=== PATIENT | male | born 1970 | race Caucasian/White ===

== ENCOUNTER 2021-12-03 16:58 | Outpatient (CLI) | payer OTHER ==
--- NOTE | 2021-12-03 20:51 | XRAY Report ---
PROCEDURE: Chest 2 View X-Ray INDICATIONS: NIGHT SWEATS, ACOUSTIC NEUROMA TECHNIQUE: 2 view(s) of the chest. COMPARISON: None. FINDINGS: Surgical changes and devices: None. Lungs and pleura: No pleural effusions or pneumothorax. Lungs are clear. Mediastinum: Mediastinal contours are normal. Heart size is normal. Bones and chest wall: No suspicious bony abnormalities. Soft tissues appear unremarkable. IMPRESSION: No acute cardiopulmonary process demonstrated radiographically. Reviewed by: Pascual Rosa MD on 12/03/2021 8:49 PM PDT Approved by: Pascual Rosa MD on 12/03/2021 8:49 PM PDT Station ID: [id number]
== END 2021-12-03 16:59 | disposition home or self-care (01) ==
LOC: DI 16:58
PROVIDERS: ATTEND Nurse Practitioner Family
DX: R61 Generalized hyperhidrosis (principal)

== ENCOUNTER 2022-12-03 09:29 | Outpatient (CLI) | payer OTHER ==
--- NOTE | 2022-12-03 12:39 | XRAY Report ---
PROCEDURE: Hip w/Pelvis 1V LT INDICATIONS: NIGHT SWEATS, NEUROMA TECHNIQUE: AP pelvis with lateral view(s) of the left hip(s). COMPARISON: None. FINDINGS: Bones: No fractures or dislocations. No suspicious bony lesions. Mild bilateral hip joint space n arrowing Soft tissues: No suspicious soft tissue calcifications or masses. IMPRESSION: Mild bilateral hip joint space narrowing Reviewed by: Franko Ferguson MD on 12/03/2022 11:38 AM BRITTNEY Approved by: Franko Ferguson MD on 12/03/2022 11:38 AM AKDT Station ID: [id number]
== END 2022-12-03 09:30 | disposition home or self-care (01) ==
LOC: DI 09:29
PROVIDERS: ATTEND Nurse Practitioner Family
DX: M16.0 Bilateral primary osteoarthritis of hip (principal)

== ENCOUNTER 2022-12-27 12:35 | Emergency (ER) | payer MEDICAID, OTHER ==
[2022-12-27] MEDS ORDERED: BUTALB/ACETAM/CAFF 50/325/40MG TABLET PO STA (15:23)
--- NOTE | 2022-12-27 15:26 | ED Physician Documentation ---
PD HPI HEADACHE - Stated complaint Stated Complaint: EAR PX, MIGRAINE - Chief complaint Chief Complaint: Heent - History obtained from History obtained from: Patient, Family - History of Present Illness Pain level max: 6 Pain level now: 5 Location: Front Quality: Throbbing, Aching Associated symptoms: No: Fever, Nausea, Vomiting, Weakness, Numbness, Syncope, Seizure Contributing factors: No: Anticoagulated, Possible carbon monoxide, Hypertension, Trauma - Additional information Additional information: Patient is a 52-year-old male who presents to the emergency department with a headache for the past 4 days. Located in the front of the scalp. Nothing seems to make it better or worse.Worse with light and sound. Nothing seems to make it better. Took Tylenol without relief. He has also had clear drainage from his nose for the past 1 year. He has a history of an acoustic neuroma removal in 2019 in [place] he has not had any follow-up since that time. They moved here a couple of years ago. He was supposed to have an MRI with and 2 to 3 years of removal, but reportedly the insurance has recently denied to the MRI request. Patient denies any fevers or chills. 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 He was seen at the walk-in clinic today and they sent him here for a head CT. Review of Systems Constitutional: denies: Fever, Chills GI: denies: Nausea, Vomiting, Diarrhea Skin: denies: Rash Musculoskeletal: denies: Neck pain, Back pain Neurologic: denies: Headache PD PAST MEDICAL HISTORY - Past Medical History Past Medical History: No - Past Surgical History Past Surgical History: Yes Other past surgical history: Acoustic neuroma removal - Present Medications Home Medications: Ambulatory Orders Medication Instructions Recorded Confirmed Amox/Clav 875/125 [Augmentin] 1 tab PO Q12H #20 tablet 12/27/22 Cetirizine HCl/Pseudoephedrine 1 each PO BID PRN #30 tab 12/27/22 [Zyrtec-D Tablet] - Allergies Allergies/Adverse Reactions: Allergies Allergy/AdvReac Type Severity Reaction Status Date / Time No Known Drug Allergies Allergy Verified 12/27/22 12:54 - Living Situation Living Situation: reports: With family Living Arrangement: reports: At home - Social History Does the pt smoke?: No Does the pt have substance abuse?: No - Family History Family history: reports: Non contributory PD ED PE NORMAL - Vitals Vital signs reviewed: Yes - General General: Alert and oriented X 3, No acute distress - HEENT HEENT: PERRL, Moist mucous membranes, Pharynx benign, Other (R TM normal. L TM erythematous no fluid. Tender to palpation over the frontal sinuses. Mild intranasal inflammation) - Neck Neck: Supple, no meningeal sign - Cardiac Cardiac: RRR, Strong equal pulses - Respiratory Respiratory: No respiratory distress, Clear bilaterally - Abdomen Abdomen: Soft, Non tender, Non distended - Back Back: No spinal TTP - Derm Derm: Warm and dry - Extremities Extremities: Normal ROM s pain - Neuro Neuro: Alert and oriented X 3, head of marketing adometry 2-12 intact, No motor deficit, No sensory deficit, Normal speech Eye Opening: Spontaneous Motor: Obeys Commands Verbal: Oriented GCS Score: 15 - Psych Psych: Normal mood, Normal affect Results - Vitals Vitals: Vital Signs - 24 hr 12/27/22 12/27/22 12:51 16:20 Temperature 36.1 C L Heart Rate 80 81 Respiratory 16 16 Rate Blood Pressure 114/74 116/78 O2 Saturation 100 97 Oxygen O2 Source Room air - Rads (name of study) CT head Relevant Findings:: Final report received, See rad report PD Medical Decision Making - ED course Complexity details: reviewed results, re-evaluated patient, considered differential, d/w patient, d/w family ED course: 52-year-old male with a history of a left-sided acoustic neuroma that was reportedly removed in 2019. His headache improved with Fioricet, CT scan shows a possible right-sided acoustic neuroma. He will need an MRI with and without contrast for further characterization. This can be done with his doctor as an outpatient. Appears to have sinusitis as well. We will place on antibiotics and decongestants. We will have him follow-up with his doctor for further care. No evidence of subarachnoid hemorrhage. Patient counseled regarding signs and symptoms for which I believe and urgent re-evaluation would be necessary. Patient with good understanding of and agreement to plan and is comfortable goi home at this time This document was made in part using voice recognition software. While efforts are made to proofread this document, sound alike and grammatical errors may occur. Departure - Departure Disposition: 01 Home, Self Care Clinical Impression: Intracranial mass Sinusitis Qualifiers: Sinusitis location: pansinusitis Chronicity: acute Recurrence: non-recurrent Qualified Code(s): J01.40 - Acute pansinusitis, unspecified Condition: Good Instructions: ED Sinusitis Abx Tx Follow-Up: Julianne Donis ARNP [Primary Care Provider] - Within 1 week Prescriptions: Amox/Clav 875/125 [Augmentin] 1 tab PO Q12H #20 tablet Cetirizine HCl/Pseudoephedrine [Zyrtec-D Tablet] 1 each PO BID PRN #30 tab PRN Reason: nasal congestion Comments: Your prescriptions were sent to [facility] in [place]. Please take all antibiotics until gone. Please follow-up with your doctor for further care. Your head CT reading as below. On the right side at the cerebellar pontine angle, there is a lesion approximately 1.9 x 1 cm. Unclear if this has been present on your prior scans or not since they are not available. A brain MRI with and without contrast is recommended. Please follow-up with your doctor for this. You also appear to have sinusitis, we will place you on antibiotics for this. Please return if you worsen. EXAM: [id number] CT/HEADWO ([id number]) PROCEDURE: HEAD WO INDICATIONS: headache, h/o acoustic neuroma TECHNIQUE: Noncontrast 4.5 mm thick angled axial sections acquired from the foramen magnum to the vertex. For radiation dose reduction, the following was used: automated exposure control, adjustment of mA and/or kV according to patient size. COMPARISON: None. FINDINGS: Image quality: Excellent. CSF spaces: Basal cisterns are patent. No extra-axial fluid collections. Ventricles are normal in size and shape. Brain: A mildly hyperdense elliptical or cylindrical right CPA lesion measuring approximately 1.9 x 1.0 cm likely represents the patient's acoustic neuroma. No midline shift. No intracranial masses or hemorrhage. Cooper-white matter interface is normal. Skull and face: Calvarium and visualized facial bones are intact, without suspicious lesions. Sinuses: Patchy right ethmoid disease anteriorly. IMPRESSION: 1. No acute intracranial process. 2. Probable identification of the patient's acoustic neuroma. 3. Patchy right ethmoid sinusitis. Comment: If this patient has significant neurological symptoms, consider brain MRI with and without contrast. Discharge Date/Time: 12/27/22 17:06
--- NOTE | 2022-12-27 15:46 | CT Report ---
PROCEDURE: HEAD WO INDICATIONS: headache, h/o acoustic neuroma TECHNIQUE: Noncontrast 4.5 mm thick angled axial sections acquired from the foramen magnum to the vertex. For r adiation dose reduction, the following was used: automated exposure control, adjustment of mA and/or kV according to patient size. COMPARISON: None. FINDINGS: Image quality: Excellent. CSF spaces: Basal cisterns are patent. No extra-axial fluid collections. Ventricles are normal in size and shape. Brain: A mildly hyperdense elliptical or cylindrical right CPA lesion measuring approximately 1.9 x 1.0 cm likely represents the patient's acoustic neuroma. No midline shift. No intracranial masses or hemorrhage. Cooper-white matter interface is normal. Skull and face: Calvarium and visualized facial bones are intact, without suspicious lesions. Sinuses: Patchy right ethmoid disease anteriorly. IMPRESSION: 1. No acute intracranial process. 2. Probable identification of the patient's acoustic neuroma. 3. Patchy right ethmoid sinusitis. Comment: If this patient has significant neurological symptoms, consider brain MRI with and without c ontrast. Reviewed by: Eric Kirby MD on 12/27/2022 3:45 PM PDT Approved by: Eric Kirby MD on 12/27/2022 3:45 PM PDT Station ID: [id number]
[2022-12-27 16:20] VITALS: BP 116/78
[2022-12-27] MEDS ORDERED: AMOX/CLAV 875 MG/125 MG TABLET PO STA (16:53)
== END 2022-12-27 17:06 | disposition home or self-care (01) ==
LOC: ED 12:35
DX: J01.40 Acute pansinusitis, unspecified (principal); D33.3 Benign neoplasm of cranial nerves
CPT/HCPCS: 70450; 99284; A9270

== ENCOUNTER 2023-01-14 12:40 | Outpatient (CLI) | payer MEDICAID ==
[~2023-01-14 12:40] MED LIST: GADOBUTROL 7.5 MMOL/7.5 ML VIAL ONE
[2023-01-14 13:05] LABS: CALCIUM 9.2 mg/dL (8.5-10.3); CREATININE 0.7 mg/dL (0.6-1.2); POTASSIUM 3.8 mmol/L (3.5-5.0)
[2023-01-14] MEDS: GADOBUTROL 7.5 MMOL/7.5 ML VIAL IVP ONE (14:12)
--- NOTE | 2023-01-19 12:42 | MRI Report ---
PROCEDURE: IAC'S W/WO INDICATIONS: NEW MASS LESION SEEN ON CT CONTRAST: GADAVIST 7.5 ML TECHNIQUE: Noncontrast sagittal T1 spin echo, axial FLAIR, axial gradient echo, axial diffusion and ADC through the brain. Axial thin-slice 3D CISS, coronal balanced GE, axial T1 spin echo with fat saturation thr ough the internal auditory canals. After the administration of contrast, thin slice axial and escobedo l T1 spin echo with fat saturation through the internal auditory canals, and axial T1 spin echo with fat saturation through the brain. COMPARISON: Correlation is made with the accompanying standard protocol brain MRI. Correlation is al so made with recent prior head CT, 12/25/2022. Correlation is also made with prior outside brain MRI, December 2017 FINDINGS: Image quality: Excellent. Cerebellopontine angles: This patient is status post left internal auditory canal mass removal. On th jazzy images, no recurrent masses or abnormal enhancement can be seen involving the left internal audit ory canal. No right internal auditory canal masses or abnormal enhancement can be seen. There is wide stefanie of the left cerebellopontine angle cistern, which is not regarded to be frankly pathologic. The cerebellopontine angle cisterns are otherwise within normal limits. CSF spaces: Ventricles are normal in size and shape. No extra-axial fluid collections. Basal ciste rns are patent. Brain: No intracranial bleeds or mass effects. Cooper-white matter interface is intact. No abnormal intracranial enhancement. Diffusion weighted images demonstrate no acute ischemic insults. Brainste m appears normal. Normal intravascular flow voids are present. Skull and face: Calvarial marrow signal is normal. Orbits appear normal. Sinuses: Prominent left mastoid air cell fluid can be seen. No significant paranasal sinus disease is seen. IMPRESSION: Prior removal of the left internal auditory canal mass. No findings of recurrent masses are seen. No abnormal enhancement can be seen. Note is made of prominent abnormal fluid within the left mastoid air cells. Reviewed by: Ant Canchola MD on 01/19/2023 11:41 AM BRITTNEY Approved by: Ant Canchola MD on 01/19/2023 11:41 AM BRITTNEY Station ID: [id number]
--- NOTE | 2023-01-19 12:44 | MRI Report ---
PROCEDURE: BRAIN W/WO INDICATIONS: NEW MASS LESION SEEN ON CT CONTRAST: GADAVIST 7.5 ML TECHNIQUE: Noncontrast axial T1 spin echo, axial T2 fast spin echo, sagittal and axial FLAIR, coronal T2 fast sp in echo, axial gradient echo, axial diffusion and ADC through the brain. After the administration of contrast, axial and coronal T1 spin echo with fat saturation through the brain. COMPARISON: Correlation is made with the accompanying cerebellopontine angle cistern protocol MRI. C orrelation is made with prior head CT, 12/27/2022. Correlation is also made with prior outside brain M RI, 05/02/2018. FINDINGS: Image quality: Excellent. CSF spaces: Basal cisterns are patent. No extra-axial fluid collections. Widening of the left cereb ellopontine angle cistern can be seen, which isn't regarded to be frankly pathologic. Ventricles are normal in size and shape. Brain: No midline shift. No intracranial bleeds or masses. No abnormal intracranial enhancement. No recurrent masses can be seen involving the left internal auditory canal. This is better demonstrat ed on the accompanying IAC protocol MRI. There is cerebral volume loss for age. There is periventricular white matter chronic small vessel is chemic change. The brainstem appears normal. Diffusion-weighted images demonstrate no acute ischemi c insults. No chronic ischemic insults. Normal intravascular flow voids are present. Skull and face: Calvarial marrow is normal in signal. Orbits appear normal. Sinuses: Prominent abnormal fluid can be seen within the left mastoid air cells. The paranasal sinuse s are unremarkable. IMPRESSION: No recurrent masses are seen. Prominent abnormal fluid noted within the left mastoid air cells. Reviewed by: Ant Canchola MD on 01/19/2023 11:42 AM BRITTNEY Approved by: Ant Canchola MD on 01/19/2023 11:42 AM BRITTNEY Station ID: [id number]
== END 2023-01-14 12:41 | disposition home or self-care (01) ==
LOC: DI 12:40
PROVIDERS: ATTEND Family Medicine
DX: R22.0 Localized swelling, mass and lump, head (principal); D33.3 Benign neoplasm of cranial nerves
CPT/HCPCS: 36415; 80048

== ENCOUNTER 2024-08-23 19:50 | Inpatient (IN) ==
[2024-08-23] MEDS ORDERED: iohexoL-300 100 ML VIAL ONE ×2 (20:20→21:11)
--- NOTE | 2024-08-23 20:20 | ED Physician Documentation ---
History of Present Illness Stated complaint Stated Complaint: AMS Chief complaint Chief Complaint: Neuro History obtained from History obtained from: Patient History of Present Illness Timing: Prior to arrival Additonal information Additional information: Patient is a 54-year-old male presenting to the emergency department with sudden onset altered mental status. Patient last known well time was 10 AM. According to patient was having multiple episodes of vomiting this morning. No fevers or chills that she knows of he was feeling fine the day prior eating and drinking normally. Patient has history of acoustic neuroma but no other past medical history no history of immunocompromise. Vitals on arrival show some mild soft blood pressures SBP 104 nontachycardic afebrile saturating well on room air. Code stroke was called as patient's last well-known time on arrival was 10 AM which was still within a 12-hour window. Patient is not on any sort of blood thinners. CT head and CTA were negative according to radiologist received call at [phone]. Aucustic neuroma removed in 2017 Meds/Allgy Home Medications Ambulatory Orders Medication Instructions Recorded Confirmed No Known Home Medications 08/23/24 08/23/24 Allergies Allergies Allergy/AdvReac Type Severity Reaction Status Date / Time No Known Drug Allergies Allergy Verified 08/23/24 20:01 [facility] Social History Social History Living arrangement: At home Living Condition: With family Exam Constitutional Patient appears acutely confused here in the ED HENMT normocephalic No acute signs of truama Eyes PERRL Neck/C-Spine visual inspection normal Lymph no lymphadenopathy noted Chest inspection of chest normal Respiratory breath sounds equal bilaterally, normal respiratory effort, clear to auscultation bilaterally and no wheezes Cardiovascular normal heart rate noted, regular rhythm noted, no gallop and no rub Back/Pelvis spine normal to inspection No signs of truama Neurology Patient following simple commands such as squeeze hands and move feet but will not answer any questions GCS 11 on arrival. No signs of fasciculations no unilateral or bilateral sensory deficit or motor deficit patient flexes to pain NIHS 10 Results Vitals Vitals: Vital Signs - 24 hr 08/23/24 20:01 08/23/24 20:34 08/23/24 21:04 Temperature 36.6 C Temperature Source Tympanic Pulse Rate 90 90 90 Respiratory Rate 24 18 18 Blood Pressure 137/82 H 101/64 104/61 O2 Saturation 98 98 98 O2 Source Room air Room air Room air Pain Intensity 0 0 0 08/23/24 22:51 Temperature Temperature Source Pulse Rate 111 H Respiratory Rate 10 L Blood Pressure O2 Saturation O2 Source Pain Intensity Oxygen O2 Source Room air Labs Labs: Laboratory Tests 08/23/24 08/23/24 08/23/24 20:18 20:41 21:18 WBC 23.4 H RBC 4.55 L Hgb 13.6 L Hct 40.0 L MCV 87.9 MCH 29.9 MCHC 34.0 RDW 12.5 Plt Count 258 MPV 10.0 Neut # (Auto) 21.1 H Lymph # (Auto) 0.5 L [place] # (Auto) 1.6 H Eos # (Auto) 0.0 Baso # (Auto) 0.1 Absolute Nucleated RBC 0.00 Band Neuts % (Manual) Not Reportable Abnorm Lymph % (Manual) Not Reportable Nucleated RBC % 0.0 Neutrophils # (Manual) Not Reportable Lymphocytes # (Manual) Not Reportable Monocytes # (Manual) Not Reportable Eosinophils # (Manual) Not Reportable Basophils # (Manual) Not Reportable Differential Comment MANUAL=AUTO DIFF Manual Slide Review Indicated Platelet Estimate NORMAL (130-450,000) Platelet Morphology NORMAL APPEARANCE RBC Morph Micro Appear NORMAL APPEARANCE PT 16.0 H INR 1.5 H Sodium 136 Potassium 3.3 L Chloride 98 L Carbon Dioxide 25 Anion Gap 13.0 BUN 13 Creatinine 1.0 Estimated GFR (MDRD) 77 L Glucose 163 H Lactic Acid 4.7 H* Calcium 9.2 Magnesium 1.2 L Total Bilirubin 0.9 AST 18 ALT 19 Alkaline Phosphatase 49 Total Creatine Kinase 36 Total Protein 7.4 Albumin 4.1 Globulin 3.3 Albumin/Globulin Ratio 1.2 Nasal Adenovirus (PCR) NOT DETECTED Nasal B. parapertussis DNA (PCR) NOT DETECTED Nasal Coronavir 229E PCR NOT DETECTED Nasal Coronavir HKU1 PCR NOT DETECTED Nasal Coronavir NL63 PCR NOT DETECTED Nasal Coronavir OC43 PCR NOT DETECTED Nasal Enterovir/Rhinovir PCR NOT DETECTED Nasal Influenza B PCR NOT DETECTED Nasal Influenza A PCR NOT DETECTED Nasal Parainfluen 1 PCR NOT DETECTED Nasal Parainfluen 2 PCR NOT DETECTED Nasal Parainfluen 3 PCR NOT DETECTED Nasal Parainfluen 4 PCR NOT DETECTED Nasal RSV (PCR) NOT DETECTED Nasal B.pertussis DNA PCR NOT DETECTED Nasal C.pneumoniae (PCR) NOT DETECTED Oswaldo Human Metapneumo PCR NOT DETECTED Nasal M.pneumoniae (PCR) NOT DETECTED Nasal SARS-CoV-2 (PCR) NOT DETECTED Salicylates < 1.5 Ethyl Alcohol < 10.0 Procedures Lumbar Puncture - Major Position: Laying right side Location: L4-L5 and Midline approach Anesthesia: Local lidocaine CSF: Cloudy Other: Sterile prep and drape, Patient tolerated well and No complications PD Medical Decision Making ED course Complexity details: reviewed old records and reviewed results ED course: Patient is a 54-year-old male presenting to the emergency department with sudden onset altered mental status. Patient last known well time was 10 AM. According to patient was having multiple episodes of vomiting this morning. No fevers or chills that she knows of he was feeling fine the day prior eating and drinking normally. Patient has history of acoustic neuroma but no other past medical history no history of immunocompromise. Vitals on arrival show some mild soft blood pressures SBP 104 nontachycardic afebrile saturating well on room air. Code stroke was called as patient's last well-known time on arrival was 10 AM which was still within a 12-hour window. Patient is not on any sort of blood thinners. CT head and CTA were negative according to radiologist received call at [phone]. Patient had workup with neurology they note altered mental status most likely infectious given white count at this time however could be secondary to seizure- like activity but patient has no past medical history of this and low suspicion for any sort of mass causing the symptoms so suddenly. They recommend further e valuation for encephalopathy at this time. If no acute findings and MRI with contrast and EEG for evaluation. Labs here in the emergency department is significantly remarkable for leukocytosis of 23. Patient has no signs of anemia CMP shows mild dehydration with GFR of 77 mild hypokalemia, but no signs of Hyponatremia. Patient significantly hypomagnesemic however most likely secondary to persistent nausea and vomiting this morning. Patient EKG shows no prolonged QTc. He remains in normal sinus rhythm. A dose of Compazine given here in the ED to prevent any further nausea or vomiting. Potassium replaced here in [facility] ED. CT head: No acute intracranial pathology. CTA head and neck: No significant intracranial arterial abnormality is seen. No significant abnormality is seen within the arteries of the neck. CT abdomen and pelvis: No significant intracranial arterial abnormality is seen. No significant abnormality is seen within the arteries of the neck. CT chest: Diffuse pulmonary groundglass opacities may be infectious/inflammatory, versus edema. No dense airspace disease or pleural effusions. Consider future imaging surveillance to assess for resolution. Lumber puncture performed here in the emergency department with Dr. Unger. He performed sedation and lumbar puncture was performed patient tolerated well see procedure note above cloudy CSF fluid was obtained antibiotics of ceftriaxone and Vanco and acyclovir was started. Considered ampicillin however do not suspect Listeria at this time given spouse is able to provide a good history. Discussed case with hospitalist Dr. Alcaraz who is agreeable with this plan. Discharge Plan Discharge Patient Disposition: 66 [facility] DC/Xfer Condition: Stable Clinical Impression: Altered mental status, Headache, Meningitis, Pneumonia Prescriptions: No Action No Known Home Medications Print Language: Divehi
[2024-08-23 20:35] LABS: INR 1.5 (0.8-1.2)
[2024-08-23] MEDS: iohexoL-300 100 ML VIAL IVP ONE (20:37)
[2024-08-23 20:39] LABS: ALBUMIN 4.1 g/dL (3.2-5.5); ALBUMIN/GLOBULIN RATIO 1.2 (1.0-2.2); ALKALINE PHOSPHATASE 49 IU/L (42-121); ALT ALANINE AMINOTRANSFERASE 19 IU/L (10-60); AST ASPARTATE AMINOTRANSFERASE 18 IU/L (10-42); BILIRUBIN,TOTAL 0.9 mg/dL (0.2-1.0); BUN - BLOOD UREA NITROGEN 13 mg/dL (6-20); CALCIUM 9.2 mg/dL (8.5-10.3); CARBON DIOXIDE - CO2 25 mmol/L (21-32); CHLORIDE 98 mmol/L (101-111); CK- CREATINE KINASE 36 IU/L (30-223); ETOH - ETHANOL < 10.0 mg/dL; GFR - MDRD 77 (>89); GLUCOSE 163 mg/dL (74-104); MAGNESIUM 1.2 mg/dL (1.7-2.3); POTASSIUM 3.3 mmol/L (3.5-4.5); SODIUM 136 mmol/L (135-145); TOTAL PROTEIN 7.4 g/dL (6.4-8.9)
[2024-08-23 20:43] LABS: BASOPHILS # (AUTO) 0.1 10^3/uL (0.0-0.1); BASOPHILS % (AUTO) 0.3 %; HGB - HEMOGLOBIN 13.6 g/dL (14.0-18.0); LYMPHOCYTES # (AUTO) 0.5 10^3/uL (1.5-3.5); LYMPHOCYTES % (AUTO) 2.3 %; MEAN CORPUSCULAR HEMOGLOBIN 29.9 pg (27.0-31.0); MEAN CORPUSCULAR VOLUME 87.9 fL (80.0-94.0); MONOCYTES # (AUTO) 1.6 10^3/uL (0.0-1.0); MONOCYTES % (AUTO) 6.8 %; NEUTROPHILS # (AUTO) 21.1 10^3/uL (1.5-6.6); NEUTROPHILS % (AUTO) 89.9 %; PLT - PLATELET COUNT 258 10^3/uL (130-450); RED BLOOD COUNT 4.55 10^6/uL (4.70-6.10); RED CELL DISTRIBUTION WIDTH 12.5 % (12.0-15.0); SLIDE REVIEW? Indicated; WHITE BLOOD COUNT 23.4 x10^3/uL (4.8-10.8)
--- NOTE | 2024-08-23 20:44 | CT Report ---
PROCEDURE: CT Head W/O Stroke Protocol INDICATIONS: AMS, within range TECHNIQUE: Noncontrast 4.5 mm thick angled axial sections acquired from the foramen magnum to the vertex, with c oronal reformats. For radiation dose reduction, the following was used: automated exposure control, adjustment of mA and/or kV according to patient size. COMPARISON: CT head 12/27/2022, brain MRI and MRI IAC 01/14/2023. FINDINGS: Image quality: Diagnostic. CSF spaces: Basal cisterns are patent. No extra-axial fluid collections. Ventricles are normal in size and shape. Brain: No midline shift. No intracranial masses or hemorrhage. Cooper-white matter interface is norm al. Skull and face: Calvarium and visualized facial bones are intact, without suspicious lesions. Sinuses: Visualized sinuses. Persistent fluid in the left mastoid air cells. IMPRESSION: No acute intracranial pathology. Findings were discussed with ordering provider on 08/23/2024 at 8:42 PM PST. This study fulfills neurological imaging criteria for inclusion or exclusion of acute stroke therapie s based on available published neurological imaging guidelines. Reviewed by: Bekah Valverde MD, PhD on 08/23/2024 8:43 PM PST Approved by: Bekah Valverde MD, PhD on 08/23/2024 8:43 PM PST Station ID: [id number]
[2024-08-23 20:46] LABS: SALICYLATE < 1.5 mg/dL
--- NOTE | 2024-08-23 20:48 | CT Report ---
PROCEDURE: CT Angio Head/Neck INDICATIONS: ams TECHNIQUE: After the administration of intravenous contrast, 1 mm thick sections acquired from the aortic arch t hrough the [place]. 3-dimensional dvpgvby-qtaibnszi-zisyhewkam (MIP) and/or volume renderin g reformats were acquired of the central intracranial vasculature and neck separately. For radiation dose reduction, the following was used: automated exposure control, adjustment of mA and/or kV acco rding to patient size. CONTRAST: OMNI 300 80ML COMPARISON: Same day CT none contrast 08/23/2023. FINDINGS: Image quality: Diagnostic. HEAD CT: CSF Spaces: Basal cisterns are patent. No extra-axial fluid collections. Ventricles are normal in size and shape. Brain: No significant abnormality is seen for scanning technique. Skull and face: Calvarium and visualized facial bones appear intact, without suspicious lesions. Sinuses: Visualized sinuses and mastoids are clear. HEAD CT ANGIOGRAPHY: Anterior circulation: Intracranial internal carotid arteries are normal in size and flow. The flow within the paired anterior cerebral arteries is normal and symmetric. The flow within the middle cer ebral arteries is normal and symmetric. The anterior communicating artery is seen. No aneurysms are seen. Posterior circulation: Visualized portions of the vertebral arteries demonstrate normal caliber, and join to form a normal appearing basilar artery. Flow within the posterior cerebral arteries is norm al and symmetric. No aneurysms are seen. NECK CT ANGIOGRAPHY: Carotid system: The great vessels demonstrate a conventional anatomy as they arise from the aortic a rch. The origins of the common carotid arteries appear patent. The common carotid arteries demonstr ate normal caliber and courses. The bifurcation regions are both widely patent. The internal caroti d arteries demonstrate normal calibers and courses. Posterior circulation: The origins of the vertebral arteries both appear widely patent. The more brown perior extracranial portions of both vertebral arteries also demonstrate normal courses and calibers. They join to form a normal appearing basilar artery. Soft tissues: Visualized neck soft tissues demonstrate no suspicious abnormalities. Bones: No suspicious bony lesions. Visualized cervical spine appears normally aligned. IMPRESSION: No significant intracranial arterial abnormality is seen. No significant abnormality is seen within the arteries of the neck. The estimate of stenosis included in the report of the imaging study was calculated using the NASCET method Reviewed by: Bekah Valverde MD, PhD on 08/23/2024 8:47 PM PST Approved by: Bekah Valverde MD, PhD on 08/23/2024 8:47 PM [facility] Station ID: [id number]
[2024-08-23 21:00] LABS: DIFFERENTIAL COMMENT MANUAL=AUTO DIFF; PLATELET ESTIMATE, MANUAL NORMAL (130-450,000) (NORMAL); PLATELET MORPHOLOGY NORMAL APPEARANCE (NORMAL); RBC MORPHOLOGY (MULTIPLE) NORMAL APPEARANCE (NORMAL)
[2024-08-23] MEDS: LACTATED RINGERS 1,000 ML IV STA (21:12)
--- NOTE | 2024-08-23 21:44 | XRAY Report ---
PROCEDURE: XR Chest 1V INDICATIONS: eval for sepsis TECHNIQUE: One view of the chest was acquired. COMPARISON: Chest radiograph 12/03/2021. FINDINGS: Suboptimal positioning. No focal dense airspace consolidation. No significant pleural effusion or pne umothorax. IMPRESSION: Limited exam due to suboptimal positioning. No gross cardiomegaly pulmonary abnormalities visualized. Reviewed by: Bekah Valverde MD, PhD on 08/23/2024 9:42 PM PST Approved by: Bekah Valverde MD, PhD on 08/23/2024 9:42 PM PST Station ID: [id number]
[2024-08-23] MEDS ORDERED: VANCOMYCIN 1 GM VIAL ONE (22:03)
[2024-08-23 22:13] LABS: B. PARAPERTUSSIS- RESP PCR PAN NOT DETECTED; B. PERTUSSIS- RESP PCR PANEL NOT DETECTED; C. PNEUMONIAE- RESP PCR PANEL NOT DETECTED; CORONAVIRUS 229E-RESP PCR NOT DETECTED; CORONAVIRUS HKU1-RESP PCR NOT DETECTED; CORONAVIRUS NL63-RESP PCR NOT DETECTED; CORONAVIRUS OC43-RESP PCR NOT DETECTED; HUMAN METAPNEUMOVIRUS NOT DETECTED; INFLUENZA A- RESP PCR PANEL NOT DETECTED; INFLUENZA B - RESP PCR PANEL NOT DETECTED; M. PNEUMONIAE- RESP PCR PANEL NOT DETECTED; PARAINFLUENZA VIRUS 1 NOT DETECTED; PARAINFLUENZA VIRUS 2 NOT DETECTED; PARAINFLUENZA VIRUS 4 NOT DETECTED; RHINOVIRUS/ENTEROVIRUS NOT DETECTED; RSV- RESP PCR PANEL NOT DETECTED; SARS-CoV-2 -RESP PCR PANEL NOT DETECTED
[2024-08-23] MEDS: KETAMINE 500 MG/10 ML VIAL IM STA (22:23)
--- NOTE | 2024-08-23 22:23 | CT Report ---
PROCEDURE: CT Chest W INDICATIONS: concern for infection, sepsis CONTRAST: OMNI 300 80ML TECHNIQUE: After the administration of intravenous contrast, a CT scan of the chest was performed. Images were recorded and evaluated at appropriate window settings. Reformats: axial MIP of the chest, coronal and sagittal. For radiation dose reduction, the following was used: automated exposure control, adjustme nt of mA and/or kV according to patient size. COMPARISON: Same-day radiograph FINDINGS: Image quality: Diagnostic Lungs and pleura:There are mild to moderate diffuse groundglass opacities. No dense airspace disease or pleural effusions. Multiple small pulmonary nodules are present for example along the right-sided fissure image 4/51 measuring 5 mm. Attention on follow-up. No pleural effusions. Mediastinum, heart, and esophagus: Mild nonspecific distal esophageal wall thickening. Overall heart size within normal limits. No pathologic lymph nodes by size criteria. Mild fluid is seen in the esop hagus. Chest wall and thyroid: Unremarkable Upper abdomen: Separately dictated Bones: There are degenerative changes. IMPRESSION: Diffuse pulmonary groundglass opacities may be infectious/inflammatory, versus edema. No dense airspa ce disease or pleural effusions. Consider future imaging surveillance to assess for resolution. Nonspecific esophageal wall thickening. There is also mild fluid within the esophagus. Findings may r epresent esophagitis, reflux, and/or dysmotility. Endoscopy could further evaluate if clinically nece ssary. Reviewed by: Дмитрий Keating MD on 08/23/2024 10:21 PM PST Approved by: Дмитрий Keating MD on 08/23/2024 10:21 PM PST Station ID: [id number]
--- NOTE | 2024-08-23 22:28 | CT Report ---
PROCEDURE: CT Abdomen/Pelvis W INDICATIONS: concern for infection, sepsis work up CONTRAST: OMNI 300 80ML TECHNIQUE: After the administration of intravenous contrast, a CT scan of the abdomen and pelvis was performed. Images were recorded and evaluated at appropriate window settings. Reformats: coronal and sagittal. F or radiation dose reduction, the following was used: automated exposure control, adjustment of mA and /or kV according to patient size. COMPARISON: None FINDINGS: Image quality: Diagnostic Lower chest: Separately dictated Liver: Unremarkable Gallbladder and biliary system: Unremarkable, nondilated Pancreas: No ductal dilation Spleen: Nonenlarged Adrenals: No discrete nodules Kidneys: Renal contrast excretion is seen. No hydronephrosis. There are parapelvic cysts. No solid re nal mass. Vessels and lymph nodes: Main portal vein appears patent. No abdominal aortic aneurysm. No pathologic lymph nodes by size criteria. Bowel and peritoneum: There is mild nonspecific edematous fat stranding adjacent to the pancreatic ta il and lesser curvature of the stomach. 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 Colonic diverticula. No draina ble abscess or ascites. There is overall moderate fecal loading. The appendix appears nondilated. Body wall: Small fat-containing umbilical hernia. Pelvis: Distended urinary bladder. There is contrast excretion in the bladder Heterogeneous prostate not well assessed on this study Bones: No acute or suspicious osseous findings. Transitional lumbosacral anatomy. IMPRESSION: There is nonspecific edematous fat stranding adjacent to the pancreatic tail and lesser curvature of the stomach, this may represent gastritis or mild pancreatitis and is nonspecific. No abscess. No elva inable ascites. No small bowel obstruction. Other incidental findings above. Reviewed by: Дмитрий Keating MD on 08/23/2024 10:27 PM PST Approved by: Дмитрий Keating MD on 08/23/2024 10:27 PM PST Station ID: [id number]
[2024-08-23] MEDS: cefTRIAXone 1 GM VIAL IVP STA ×2 (22:42→23:07)
[2024-08-23] MEDS: VANCOMYCIN INJ 2 GM in SODIUM CHLORIDE 0.9% 500 ML IV SCH (22:45)
[2024-08-23] MEDS: MIDAZOLAM 2 MG/2 ML VIAL IVP STA (22:48)
--- NOTE | 2024-08-23 22:52 | ED Physician Documentation ---
ED Addendum Addendum Addendum: I was present for the ketamine sedation and lumbar puncture. Assisted Alicia Denise with the LP. See her note for this procedure. Purulent CSF obtained c/w meningitis. Started on ceftriaxone, vancomycin and acyclovir. Discharge Plan Discharge Prescriptions: No Action No Known Home Medications Print Language: Hungarian Stand Alone Forms: PCP List Procedures Procedural sedation Sedation prep: Informed consent (, patient altered), PE performed, ASA 2 - mild disease, IV O2 monitor, ET CO2 monitor and RT present Sedation Medications: ketamine Mallampati classification: II Patient status during sedation: Vitals remained stable, Maintained airway and Recovered uneventfully Sedation recovery: Recovered uneventfully Time in sedation (Minutes): 30
[2024-08-23] MEDS ORDERED: polyethylene glycoL 3350 17 GM PACKET PO PRN (23:00)
[2024-08-23] MEDS ORDERED: PROCHLORPERAZINE 10 MG/2 ML VIAL IVP PRN (23:00)
[2024-08-23 23:14] LABS: BILIRUBIN,URINE NEGATIVE (NEGATIVE); GLUCOSE, URINE (UA) NEGATIVE (NEGATIVE); KETONES,URINE (UA) NEGATIVE (NEGATIVE); LEUKOCYTE ESTERASE, URINE NEGATIVE (NEGATIVE); NITRITE,URINE NEGATIVE (NEGATIVE); OCCULT BLOOD,URINE NEGATIVE (NEGATIVE); PH,URINE 7.5 PH (5.0-7.5); PROTEIN,URINE NEGATIVE (NEGATIVE); UROBILINOGEN,URINE 0.2 (NORMAL) E.U./dL (NORMAL)
[2024-08-23 23:17] LABS: CLARITY,URINE V (CLEAR)
[2024-08-23 23:34] LABS: AMPHETAMINE SCREEN,URINE NEGATIVE (NEGATIVE); BARBITURATE SCREEN,UR NEGATIVE (NEGATIVE); BENZODIAZEPINES SCREEN, URINE NEGATIVE (NEGATIVE); BUPRENORPHINE SCREEN, URINE NEGATIVE (NEGATIVE); COCAINE SCREEN URINE NEGATIVE (NEGATIVE); METHADONE SCREEN, URINE NEGATIVE (NEGATIVE); METHAMPHETAMINES SCREEN, URINE NEGATIVE (NEGATIVE); OPIATE SCREEN, URINE NEGATIVE (NEGATIVE); OXYCODONE SCREEN, URINE NEGATIVE (NEGATIVE); THC CANNABINOID SCREEN, URINE NEGATIVE (NEGATIVE); TRICYCLIC ANTIDEPRESSANT,URINE NEGATIVE (NEGATIVE)
--- NOTE | 2024-08-23 23:35 | HISTORY & PHYSICAL EXAMINATION ---
Chief Complaint Chief Complaint Chief Complaint: altered and agitated History of Present Illness Admitted From Admitted From:: ED History Obtained From Records Reviewed: EMR History obtained from: and ED staff and RN Exam Limitations: Telemedicine History of Present Illness HPI Comment/Other: 54M c no significan medical hx p/w sudden confusion and agitation. Patient reportedly was baseline self yesterday. This morning patient awoke and had a headache. He went back to be after taking acetaminophen. He awoke later during the day and had n/v. Patient went back to bed again. He was seen altered and nonverbal and not following command in the afternoon by . mentions no recent trauma or travel or new medications. No prior hx of similar event. Patient has no seizure hx. He did have a left acoustic neuroma removed in the past. Daughter had a transient GI infection that resolved. He was brought into the ED as code stroke. CT brain and CTA head were negative for acute findings. Patient was given sedation for LP. He is currently somnolent. Review of Systems Status of ROS: unobtainable due to medical condition (somnolent) PFSH Social History Social History Living arrangement: At home Living Condition: With family POLST Patient has POLST: No Meds/Allgy Home Medications Ambulatory Orders Medication Instructions Recorded Confirmed No Known Home Medications 08/23/24 08/23/24 Allergies Allergies Allergy/AdvReac Type Severity Reaction Status Date / Time No Known Drug Allergies Allergy Verified 08/23/24 20:01 Exam Constitutional Patient appears acutely confused here in the ED HENMT normocephalic No acute signs of truama Eyes PERRL Neck/C-Spine visual inspection normal Lymph no lymphadenopathy noted Chest inspection of chest normal Respiratory breath sounds equal bilaterally, normal respiratory effort, clear to auscultation bilaterally and no wheezes Cardiovascular normal heart rate noted, regular rhythm noted, no gallop and no rub Back/Pelvis spine normal to inspection No signs of truama Neurology Patient following simple commands such as squeeze hands and move feet but will not answer any questions GCS 11 on arrival. 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 r/o seizure. empiric abx and antiviral acyclovir. Keppra for r/o seizure. followup cultures and CSF stds. followup UDS. fall and aspiration precaution. (2) Metabolic encephalopathy: Plan: 2/2 encephalitis. empiric abx and antiviral. Keppra for r/o seizure. fall and aspiration precaution. prn Zyprexa for agitation. (3) Sepsis: Plan: leukocytosis + tachycardia + meningoencephalitis = sepsis. as noted above for workup and treatment. iv fluid. recheck lactic acid Plan abx and acyclovir. r/o seizure. followup cultures and CSF std. followup UDS. followup neurology consultation. Lab Results Lab results reviewed: Yes 08/23/24 20:18 08/23/24 20:18 Diagnostic Imaging Results Diagnostic Imaging Results: positive Final report reviewed Core Measures Anticipated LOS I expect patient to be DC'd or transferred within 96 hours.: Yes Issues Hospital Issues and Management Plan: The patient consented to receive this telemedicine service, which I performed via live two-way audiovisual equipment. The patient is at ([facility]) and I am physically in [facility]. A nurse assisted me in the visit. Full code SCDs, Heparin Inaptient Cristopher Rose DO Internal Medicine [employer] Tele Dredge Or [place] Hand DVT/VTE - Prophylaxis VTE/DVT Device ordered at admit?: Yes VTE/DVT Prophylaxis med ordered at admit?: Yes Telemedicine Consult Details Provider Location & Consult Time Telemedicine consultation conducted via videoconferencing?: Yes List names and roles of persons who participated in consult:: Ed staff, ED RN, Telemedicine provider location:: [facility] Time Telemedicine consult began:: 22:44 Time Telemedicine consult completed:: 23:44
[2024-08-23 23:42] LABS: CSF - GLUCOSE < 10 mg/dL (45-70)
[2024-08-23] MEDS ORDERED: levETIRAcetam 500 MG/5 ML VIAL ONE (23:48)
[2024-08-23 23:49] LABS: CSF TUBE # CSF TUBE# 3; CSF XANTHOCHROMIA PRESENT (ABSENT)
[2024-08-23 23:50] LABS: RED BLOOD CELL,CSF 273 /mm^3 (0-1)
[2024-08-23 23:53] LABS: TOTAL PROTEIN,CSF 536 mg/dL (15-45); WHITE BLOOD CELL,CSF 127500 /mm^3 (0-5)
[2024-08-23] MEDS: levETIRAcetam INJ 1,000 MG in SODIUM CHLORIDE 0.9% 100ML 100 ML IV SCH (23:53)
[2024-08-24] MEDS: ACYCLOVIR IV SCH (00:04)
[2024-08-24] MEDS: SODIUM CHLORIDE 0.9% IV SCH (00:04)
[2024-08-24] MEDS: SODIUM CHLORIDE 0.9% 1,000 ML IV SCH (00:41)
[2024-08-24 00:42] LABS: CLARITY,CSF CLOUDY (CLEAR); COLOR,CSF STRAW (COLORLESS); LYMPHOCYTES,CSF 3 % (40-80); MONOCYTES,CSF 2 % (15-45); NEUTROPHILS,CSF 89 % (0-6)
[2024-08-24] MEDS: ACETAMINOPHEN 650 MG SUPP PR STA (00:42)
[2024-08-24 00:43] LABS: OTHER CELLS,CSF 6 %
[2024-08-24] MEDS: SODIUM CHLORIDE FLUSH 0.9% 10 ML SYRINGE IVP SCH (01:35)
[2024-08-24 04:42] LABS: BASOPHILS % (AUTO) 0.2 %; HCT - HEMATOCRIT 33.8 % (42.0-52.0); HGB - HEMOGLOBIN 11.6 g/dL (14.0-18.0); LYMPHOCYTES % (AUTO) 3.5 %; MEAN CORPUSCULAR HEMOGLOBIN 30.1 pg (27.0-31.0); MEAN CORPUSCULAR HGB CONC 34.3 g/dL (32.0-36.0); MEAN CORPUSCULAR VOLUME 87.8 fL (80.0-94.0); MONOCYTES % (AUTO) 6.8 %; NEUTROPHILS % (AUTO) 88.6 %; PLT - PLATELET COUNT 199 10^3/uL (130-450); RED BLOOD COUNT 3.85 10^6/uL (4.70-6.10); RED CELL DISTRIBUTION WIDTH 12.6 % (12.0-15.0); WHITE BLOOD COUNT 20.7 x10^3/uL (4.8-10.8)
[2024-08-24 04:48] LABS: ABNORMAL LYMPHS % (MANUAL) 0 %
[2024-08-24 04:58] LABS: CHOL/HDL RATIO 1.9 (<5.0); CHOLESTEROL 111 mg/dL; HDL CHOLESTEROL 58 mg/dL; LDL CHOLESTEROL,CALCULATED 45 mg/dL; LDL/HDL RATIO 0.8 (<3.6); TRIGLYCERIDES 40 mg/dL; VLDL CHOLESTEROL 8 mg/dL
[2024-08-24 05:00] LABS: ALBUMIN 3.4 g/dL (3.2-5.5); ALBUMIN/GLOBULIN RATIO 1.3 (1.0-2.2); BILIRUBIN,TOTAL 0.8 mg/dL (0.2-1.0); CALCIUM 8.1 mg/dL (8.5-10.3); CREATININE 0.7 mg/dL (0.6-1.3); POTASSIUM 3.2 mmol/L (3.5-4.5)
[2024-08-24 05:21] LABS: BAND NEUTROPHILS % (MANUAL) 21 %; DIFFERENTIAL COMMENT MANUAL DIFFERENTIAL; LYMPHOCYTES # (MANUAL) 1.9 10^3/uL (1.5-3.5); LYMPHOCYTES % (MANUAL) 9 %; MONOCYTES # (MANUAL) 1.4 10^3/uL (0.0-1.0); NEUTROPHILS # (MANUAL) 17.4 10^3/uL (1.5-6.6); PLATELET ESTIMATE, MANUAL NORMAL (130-450,000) (NORMAL); RBC MORPHOLOGY (MULTIPLE) NORMAL APPEARANCE (NORMAL); WBC MORPHOLOGY (MULTIPLE) NORMAL APPEARANCE (NORMAL)
[2024-08-24] MEDS ORDERED: ACYCLOVIR IV SCH (06:00)
[2024-08-24] MEDS ORDERED: SODIUM CHLORIDE 0.9% IV SCH (06:00)
[2024-08-24] MEDS ORDERED: SODIUM CHLORIDE 0.9% 500 ML IV ONE (06:05)
[2024-08-24] MEDS: OLANZapine 10 MG VIAL IM SCH (06:54)
[2024-08-24] MEDS: ACETAMINOPHEN 325 MG TABLET PO PRN (06:54)
[2024-08-24] MEDS: DEXAMETHASONE 10 MG/ML VIAL IVP SCH (07:59)
[2024-08-24] MEDS: ACYCLOVIR INJ 800 MG in SODIUM CHLORIDE 0.9% 500 ML IV SCH (07:59)
[2024-08-24] MEDS ORDERED: levETIRAcetam 500 MG/5 ML VIAL IVP SCH (09:00)
[2024-08-24] MEDS ORDERED: levETIRAcetam INJ 1,000 MG in SODIUM CHLORIDE 0.9% 100ML 100 ML IV SCH (09:00)
[2024-08-24] MEDS: cefTRIAXone 2 GM in SODIUM CHLORIDE 0.9% MINIBAG 100 ML IV SCH (09:17)
[2024-08-24] MEDS: HEPARIN 5,000 UNIT/ML VIAL SUBQ SCH (09:23)
[2024-08-24] MEDS: levETIRAcetam 500 MG/5 ML VIAL IVP SCH (09:23)
--- NOTE | 2024-08-24 09:26 | PROVIDER PROGRESS NOTE ---
Documented by User: Karena Gabriel 08/24/24 14:52 Subjective Prog Note Date Prog Note Date: 08/24/24 Prog Note Time: 13:50 Subjective Pt reports feeling: Improved Subjective: Dimitrios is feeling better than he can remember feeling earlier this morning. He reports his headache is down to a 2/10. He is still experiencing neck pain and stiffness. He also notes some eye pain when looking to the right. He denies any other pain. He does note some loss of appetite but denies any other abdominal discomfort. He reports an intermittent cough but denies any shortness of breath or chest pain/pressure/squeezing. He reports normal sensation and strength in his extremities. He is experiencing some dizziness when he ambulates to the bathroom. He is still a little confused about why he is here, and cannot remember the events of 08/23/2024, but he remembers seeing Dr. Be earlier this morning. He reports no other concerns at this time. Current Medications Current Medications Current Medications: Current Medications Generic Name Dose Route Start Last Admin Trade Name Freq PRN Reason Stop Dose Admin Acetaminophen 650 mg 08/23/24 23:00 08/24/24 06:54 Acetaminophen 325 Mg Tablet PO 650 mg Q4HR PRN Administration Pain 1 to 4, or Fever Dexamethasone Sodium Phosphate 12 mg 08/24/24 07:30 08/24/24 07:59 Dexamethasone 10 Mg/Ml Vial IVP 12 mg Q6HR GIOVANNI Administration Heparin Sodium (Porcine) 5,000 unit 08/24/24 09:00 Heparin 5,000 Unit/Ml Vial SUBQ BID GIOVANNI Vancomycin HCl 1 gm/ 500 mls @ 250 mls/hr 08/24/24 11:00 Vancomycin HCl 500 mg/ Sodium IV Chloride Q12H GIOVANNI Ceftriaxone Sodium 2 gm/ 100 mls @ 200 mls/hr 08/24/24 09:00 Sodium Chloride IV Q12H GIOVANNI Sodium Chloride 1,000 mls @ 50 mls/hr 08/23/24 23:45 08/24/24 00:41 Normal Saline 0.9% IV 50 mls/hr .Q20H GIOVANNI Administration Acyclovir 800 mg/ Sodium 516 mls @ 500 mls/hr 08/24/24 07:20 08/24/24 07:59 Chloride IV 500 mls/hr Q8H GIOVANNI Administration Levetiracetam 1,000 mg 08/24/24 09:00 Levetiracetam 500 Mg/5 Ml Vial IVP BID GIOVANNI Olanzapine 5 mg 08/24/24 06:00 08/24/24 06:54 Olanzapine 10 Mg Vial IM 5 mg TID GIOVANNI Administration Ondansetron HCl 4 mg 08/23/24 23:00 Ondansetron 4 Mg/2 Ml Vial IVP Q6HR PRN Nausea / Vomiting Polyethylene Glycol 17 gm 08/23/24 23:00 Polyethylene Glycol 3350 17 Gm Packet PO DAILY PRN Constipation Prochlorperazine Edisylate 10 mg 08/23/24 23:00 Prochlorperazine 10 Mg/2 Ml Vial IVP Q6HR PRN Nausea / Vomiting Sodium Chloride 10 ml 08/24/24 01:00 08/24/24 08:00 Sodium Chloride Flush 0.9% 10 Ml Syringe IVP 10 ml 0100,0900,1700 GIOVANNI Administration Sodium Chloride 10 ml 08/23/24 23:00 Sodium Chloride Flush 0.9% 10 Ml Syringe IVP PRN PRN NEEDED PER PROVIDER ORDERS Objective Vital Signs/Intake & Output Reviewed Vital Signs: Yes Vital Signs: Vital Signs x48h Temp Pulse Resp BP Pulse Ox 08/24/24 08:11 69 20 100/62 97 08/24/24 07:45 36.9 C 81 10 L 107/68 08/24/24 07:00 84 16 107/68 97 08/24/24 06:00 78 19 80/53 L 97 08/24/24 05:26 37.1 C 08/24/24 05:00 37.1 C 89 17 99/66 98 08/24/24 04:00 79 20 95/63 98 08/24/24 03:00 85 22 105/61 93 08/24/24 02:00 93 14 113/62 92 08/24/24 01:28 37.1 C 83 22 100/72 92 Intake & Output: Intake & Output 08/21/24 08/22/24 08/23/24 08/24/24 23:59 23:59 23:59 23:59 Intake Total 1000 / 1000 517 / 517 Balance 1000 / 1000 517 / 517 Weight (kg) 86.183 kg 79.5 kg Objective General Appearance: positive No acute distress and Other (very tired but able to converse in full sentences and interact appropriately during the exam) Eyes Bilateral: positive PERRL (bilateral pinpoint pupils), EOMI, No lid inflammation, Conjunctivae nml and No scleral icterus ENT: positive No signs of dehydration; negative Purulent nasal drainage or Pharyngeal erythema Neck: positive Thyroid nml, No JVD, Trachea midline and Stiff neck (with limited range of motion in all 4 directions); negative Lymphadenopathy (R), Lymphadenopathy (L), Brudzinski's sign or Swelling/bruising Respiratory: positive No respiratory distress and Rales (posterior, intermittent, right lower and middle lobe); negative Breath sounds nml (distant breath sound at bilateral apices), Wheezes or Rhonchi Cardiovascular: positive Regular rate & rhythm and No murmur Abdomen: positive Non-tender and No distention Skin: positive Color nml (visualized arms, legs, back, chest, head ), No rash (visualized arms, legs, back, chest, head ), Warm and Dry; negative Cyanosis or Diaphoresis Extremities: positive Nml appearance and No pedal edema; negative Calf tenderness or Jorje's sign/cords Neurologic/Psychiatric: positive Oriented x3 (to person, place, date but struggles to recall event), CN's nml (2-12) and Sensation nml (grossly intact in hands and feet ); negative Facial droop or Slurred/abnml speech Lab Results 08/24/24 04:24 08/24/24 04:24 Other Labs: Lab Results x24hrs 08/24/24 08/24/24 08/23/24 Range/Units 04:24 01:21 22:59 WBC 20.7 H (4.8-10.8) x10^3/uL RBC 3.85 L (4.70-6.10) 10^6/uL Hgb 11.6 L (14.0-18.0) g/dL Hct 33.8 L (42.0-52.0) % MCV 87.8 (80.0-94.0) fL MCH 30.1 (27.0-31.0) pg MCHC 34.3 (32.0-36.0) g/dL RDW 12.6 (12.0-15.0) % Plt Count 199 (130-450) 10^3/uL MPV 10.0 (7.4-11.4) fL Neut # (Auto) Not Reportable (1.5-6.6) 10^3/uL Lymph # (Auto) Not Reportable (1.5-3.5) 10^3/uL [place] # (Auto) Not Reportable (0.0-1.0) 10^3/uL Eos # (Auto) Not Reportable (0.0-0.7) 10^3/uL Baso # (Auto) Not Reportable (0.0-0.1) 10^3/uL Absolute Nucleated RBC Not Reportable x10^3/uL Total Counted 100 Band Neuts % (Manual) 21 H Abnorm Lymph % (Manual) 0 Nucleated RBC % Not Reportable /100WBC Neutrophils # (Manual) 17.4 H Lymphocytes # (Manual) 1.9 Monocytes # (Manual) 1.4 H Eosinophils # (Manual) 0.0 Basophils # (Manual) 0.0 Differential Comment MANUAL DIFFERENTIAL Manual Slide Review WBC Morphology NORMAL APPEARANCE (NORMAL) Platelet Estimate NORMAL (130-450,000) (NORMAL) Platelet Morphology (NORMAL) RBC Morph Micro Appear NORMAL APPEARANCE (NORMAL) PT (9.9-12.6) secs INR (0.8-1.2) Sodium 135 (135-145) mmol/L Potassium 3.2 L (3.5-4.5) mmol/L Chloride 103 (101-111) mmol/L Carbon Dioxide 23 (21-32) mmol/L Anion Gap 9.0 (6-13) BUN 12 (6-20) mg/dL Creatinine 0.7 (0.6-1.3) mg/dL Estimated GFR (MDRD) 117 (>89) Glucose 114 H (74-104) mg/dL Lactic Acid 1.0 (0.5-2.2) mmol/L Calcium 8.1 L (8.5-10.3) mg/dL Magnesium (1.7-2.3) mg/dL Total Bilirubin 0.8 (0.2-1.0) mg/dL AST 14 (10-42) IU/L ALT 15 (10-60) IU/L Alkaline Phosphatase 38 L (42-121) IU/L Ammonia 39.7 (18-72) umol/L Total Creatine Kinase (30-223) IU/L Total Protein 6.0 L (6.4-8.9) g/dL Albumin 3.4 (3.2-5.5) g/dL Globulin 2.6 (2.1-4.2) g/dL Albumin/Globulin Ratio 1.3 (1.0-2.2) Triglycerides 40 mg/dL Cholesterol 111 ( - 200) mg/dL LDL Cholesterol, Calc 45 ( - 129) mg/dL VLDL Cholesterol 8 mg/dL HDL Cholesterol 58 L (60 - ) mg/dL LDL/HDL Ratio 0.8 (<3.6) Cholesterol/HDL Ratio 1.9 (<5.0) Urine Color YELLOW Urine Clarity V (CLEAR) Urine pH 7.5 (5.0-7.5) PH Ur Specific [place] 1.015 (1.002-1.030) Urine Protein NEGATIVE (NEGATIVE) mg/dL Urine Glucose (UA) NEGATIVE (NEGATIVE) mg/dL Urine Ketones NEGATIVE (NEGATIVE) mg/dL Urine Occult Blood NEGATIVE (NEGATIVE) Urine Nitrite NEGATIVE (NEGATIVE) Urine Bilirubin NEGATIVE (NEGATIVE) Urine Urobilinogen 0.2 (NORMAL) (NORMAL) E.U./dL Ur Leukocyte Esterase NEGATIVE (NEGATIVE) Ur Microscopic Review NOT INDICATED Urine Culture Comments NOT INDICATED CSF Color (COLORLESS) CSF Clarity (CLEAR) Xanthrochromic (ABSENT) CSF WBC (0-5) /mm^3 CSF RBC (0-1) /mm^3 CSF Cell Count Tube # CSF Neutrophils (0-6) % CSF Lymphocytes (40-80) % CSF Monocytes (15-45) % CSF Other Cells % CSF Glucose (45-70) mg/dL CSF Total Protein (15-45) mg/dL Nasal Adenovirus (PCR) Nasal B. parapertussis DNA (PCR) Nasal Coronavir 229E PCR Nasal Coronavir HKU1 PCR Nasal Coronavir NL63 PCR Nasal Coronavir OC43 PCR Nasal Enterovir/Rhinovir PCR Nasal Influenza B PCR Nasal Influenza A PCR Nasal Parainfluen 1 PCR Nasal Parainfluen 2 PCR Nasal Parainfluen 3 PCR Nasal Parainfluen 4 PCR Nasal RSV (PCR) Nasal Screen MRSA (PCR) NEGATIVE (NEGATIVE) Nasal B.pertussis DNA PCR Nasal C.pneumoniae (PCR) Oswaldo Human Metapneumo PCR Nasal M.pneumoniae (PCR) Nasal SARS-CoV-2 (PCR) Salicylates mg/dL Urine Opiates Screen NEGATIVE (NEGATIVE) Ur Buprenorphine Scrn NEGATIVE (NEGATIVE) Ur Oxycodone Screen NEGATIVE (NEGATIVE) Urine Methadone Screen NEGATIVE (NEGATIVE) Ur Barbiturates Screen NEGATIVE (NEGATIVE) Ur Tricyclics Screen NEGATIVE (NEGATIVE) Ur Phencyclidine Scrn NEGATIVE (NEGATIVE) Ur Amphetamine Screen NEGATIVE (NEGATIVE) U Methamphetamines Scrn NEGATIVE (NEGATIVE) U Benzodiazepines Scrn NEGATIVE (NEGATIVE) Urine Cocaine Screen NEGATIVE (NEGATIVE) U Cannabinoids Screen NEGATIVE (NEGATIVE) Ur Drug Screen Comment CUTOFF CONC BELOW: Ethyl Alcohol mg/dL 08/23/24 08/23/24 08/23/24 Range/Units 22:35 21:18 20:41 WBC (4.8-10.8) x10^3/uL RBC (4.70-6.10) 10^6/uL Hgb (14.0-18.0) g/dL Hct (42.0-52.0) % MCV (80.0-94.0) fL MCH (27.0-31.0) pg MCHC (32.0-36.0) g/dL RDW (12.0-15.0) % Plt Count (130-450) 10^3/uL MPV (7.4-11.4) fL Neut # (Auto) (1.5-6.6) 10^3/uL Lymph # (Auto) (1.5-3.5) 10^3/uL [place] # (Auto) (0.0-1.0) 10^3/uL Eos # (Auto) (0.0-0.7) 10^3/uL Baso # (Auto) (0.0-0.1) 10^3/uL Absolute Nucleated RBC x10^3/uL Total Counted Band Neuts % (Manual) Abnorm Lymph % (Manual) Nucleated RBC % /100WBC Neutrophils # (Manual) Lymphocytes # (Manual) Monocytes # (Manual) Eosinophils # (Manual) Basophils # (Manual) Differential Comment Manual Slide Review WBC Morphology (NORMAL) Platelet Estimate (NORMAL) Platelet Morphology (NORMAL) RBC Morph Micro Appear (NORMAL) PT (9.9-12.6) secs INR (0.8-1.2) Sodium (135-145) mmol/L Potassium (3.5-4.5) mmol/L Chloride (101-111) mmol/L Carbon Dioxide (21-32) mmol/L Anion Gap (6-13) BUN (6-20) mg/dL Creatinine (0.6-1.3) mg/dL Estimated GFR (MDRD) (>89) Glucose (74-104) mg/dL Lactic Acid 4.7 H* (0.5-2.2) mmol/L Calcium (8.5-10.3) mg/dL Magnesium (1.7-2.3) mg/dL Total Bilirubin (0.2-1.0) mg/dL AST (10-42) IU/L ALT (10-60) IU/L Alkaline Phosphatase (42-121) IU/L Ammonia (18-72) umol/L Total Creatine Kinase (30-223) IU/L Total Protein (6.4-8.9) g/dL Albumin (3.2-5.5) g/dL Globulin (2.1-4.2) g/dL Albumin/Globulin Ratio (1.0-2.2) Triglycerides mg/dL Cholesterol ( - 200) mg/dL LDL Cholesterol, Calc ( - 129) mg/dL VLDL Cholesterol mg/dL HDL Cholesterol (60 - ) mg/dL LDL/HDL Ratio (<3.6) Cholesterol/HDL Ratio (<5.0) Urine Color Urine Clarity (CLEAR) Urine pH (5.0-7.5) PH Ur Specific [place] (1.002-1.030) Urine Protein (NEGATIVE) mg/dL Urine Glucose (UA) (NEGATIVE) mg/dL Urine Ketones (NEGATIVE) mg/dL Urine Occult Blood (NEGATIVE) Urine Nitrite (NEGATIVE) Urine Bilirubin (NEGATIVE) Urine Urobilinogen (NORMAL) E.U./dL Ur Leukocyte Esterase (NEGATIVE) Ur Microscopic Review Urine Culture Comments CSF Color STRAW (COLORLESS) CSF Clarity CLOUDY (CLEAR) Xanthrochromic PRESENT (ABSENT) CSF WBC [id number] H* (0-5) /mm^3 CSF RBC 273 H (0-1) /mm^3 CSF Cell Count Tube # CSF TUBE# 3 CSF Neutrophils 89 H (0-6) % CSF Lymphocytes 3 L (40-80) % CSF Monocytes 2 L (15-45) % CSF Other Cells 6 % CSF Glucose < 10 L* (45-70) mg/dL CSF Total Protein 536 H (15-45) mg/dL Nasal Adenovirus (PCR) NOT DETECTED Nasal B. parapertussis DNA (PCR) NOT DETECTED Nasal Coronavir 229E PCR NOT DETECTED Nasal Coronavir HKU1 PCR NOT DETECTED Nasal Coronavir NL63 PCR NOT DETECTED Nasal Coronavir OC43 PCR NOT DETECTED Nasal Enterovir/Rhinovir PCR NOT DETECTED Nasal Influenza B PCR NOT DETECTED Nasal Influenza A PCR NOT DETECTED Nasal Parainfluen 1 PCR NOT DETECTED Nasal Parainfluen 2 PCR NOT DETECTED Nasal Parainfluen 3 PCR NOT DETECTED Nasal Parainfluen 4 PCR NOT DETECTED Nasal RSV (PCR) NOT DETECTED Nasal Screen MRSA (PCR) (NEGATIVE) Nasal B.pertussis DNA PCR NOT DETECTED Nasal C.pneumoniae (PCR) NOT DETECTED Oswaldo Human Metapneumo PCR NOT DETECTED Nasal M.pneumoniae (PCR) NOT DETECTED Nasal SARS-CoV-2 (PCR) NOT DETECTED Salicylates mg/dL Urine Opiates Screen (NEGATIVE) Ur Buprenorphine Scrn (NEGATIVE) Ur Oxycodone Screen (NEGATIVE) Urine Methadone Screen (NEGATIVE) Ur Barbiturates Screen (NEGATIVE) Ur Tricyclics Screen (NEGATIVE) Ur Phencyclidine Scrn (NEGATIVE) Ur Amphetamine Screen (NEGATIVE) U Methamphetamines Scrn (NEGATIVE) U Benzodiazepines Scrn (NEGATIVE) Urine Cocaine Screen (NEGATIVE) U Cannabinoids Screen (NEGATIVE) Ur Drug Screen Comment Ethyl Alcohol mg/dL 08/23/24 Range/Units 20:18 WBC 23.4 H (4.8-10.8) x10^3/uL RBC 4.55 L (4.70-6.10) 10^6/uL Hgb 13.6 L (14.0-18.0) g/dL Hct 40.0 L (42.0-52.0) % MCV 87.9 (80.0-94.0) fL MCH 29.9 (27.0-31.0) pg MCHC 34.0 (32.0-36.0) g/dL RDW 12.5 (12.0-15.0) % Plt Count 258 (130-450) 10^3/uL MPV 10.0 (7.4-11.4) fL Neut # (Auto) 21.1 H (1.5-6.6) 10^3/uL Lymph # (Auto) 0.5 L (1.5-3.5) 10^3/uL [place] # (Auto) 1.6 H (0.0-1.0) 10^3/uL Eos # (Auto) 0.0 (0.0-0.7) 10^3/uL Baso # (Auto) 0.1 (0.0-0.1) 10^3/uL Absolute Nucleated RBC 0.00 x10^3/uL Total Counted Band Neuts % (Manual) Not Reportable Abnorm Lymph % (Manual) Not Reportable Nucleated RBC % 0.0 /100WBC Neutrophils # (Manual) Not Reportable Lymphocytes # (Manual) Not Reportable Monocytes # (Manual) Not Reportable Eosinophils # (Manual) Not Reportable Basophils # (Manual) Not Reportable Differential Comment MANUAL=AUTO DIFF Manual Slide Review Indicated WBC Morphology (NORMAL) Platelet Estimate NORMAL (130-450,000) (NORMAL) Platelet Morphology NORMAL APPEARANCE (NORMAL) RBC Morph Micro Appear NORMAL APPEARANCE (NORMAL) PT 16.0 H (9.9-12.6) secs INR 1.5 H (0.8-1.2) Sodium 136 (135-145) mmol/L Potassium 3.3 L (3.5-4.5) mmol/L Chloride 98 L (101-111) mmol/L Carbon Dioxide 25 (21-32) mmol/L Anion Gap 13.0 (6-13) BUN 13 (6-20) mg/dL Creatinine 1.0 (0.6-1.3) mg/dL Estimated GFR (MDRD) 77 L (>89) Glucose 163 H (74-104) mg/dL Lactic Acid (0.5-2.2) mmol/L Calcium 9.2 (8.5-10.3) mg/dL Magnesium 1.2 L (1.7-2.3) mg/dL Total Bilirubin 0.9 (0.2-1.0) mg/dL AST 18 (10-42) IU/L ALT 19 (10-60) IU/L Alkaline Phosphatase 49 (42-121) IU/L Ammonia (18-72) umol/L Total Creatine Kinase 36 (30-223) IU/L Total Protein 7.4 (6.4-8.9) g/dL Albumin 4.1 (3.2-5.5) g/dL Globulin 3.3 (2.1-4.2) g/dL Albumin/Globulin Ratio 1.2 (1.0-2.2) Triglycerides mg/dL Cholesterol ( - 200) mg/dL LDL Cholesterol, Calc ( - 129) mg/dL VLDL Cholesterol mg/dL HDL Cholesterol (60 - ) mg/dL LDL/HDL Ratio (<3.6) Cholesterol/HDL Ratio (<5.0) Urine Color Urine Clarity (CLEAR) Urine pH (5.0-7.5) PH Ur Specific [place] (1.002-1.030) Urine Protein (NEGATIVE) mg/dL Urine Glucose (UA) (NEGATIVE) mg/dL Urine Ketones (NEGATIVE) mg/dL Urine Occult Blood (NEGATIVE) Urine Nitrite (NEGATIVE) Urine Bilirubin (NEGATIVE) Urine Urobilinogen (NORMAL) E.U./dL Ur Leukocyte Esterase (NEGATIVE) Ur Microscopic Review Urine Culture Comments CSF Color (COLORLESS) CSF Clarity (CLEAR) Xanthrochromic (ABSENT) CSF WBC (0-5) /mm^3 CSF RBC (0-1) /mm^3 CSF Cell Count Tube # CSF Neutrophils (0-6) % CSF Lymphocytes (40-80) % CSF Monocytes (15-45) % CSF Other Cells % CSF Glucose (45-70) mg/dL CSF Total Protein (15-45) mg/dL Nasal Adenovirus (PCR) Nasal B. parapertussis DNA (PCR) Nasal Coronavir 229E PCR Nasal Coronavir HKU1 PCR Nasal Coronavir NL63 PCR Nasal Coronavir OC43 PCR Nasal Enterovir/Rhinovir PCR Nasal Influenza B PCR Nasal Influenza A PCR Nasal Parainfluen 1 PCR Nasal Parainfluen 2 PCR Nasal Parainfluen 3 PCR Nasal Parainfluen 4 PCR Nasal RSV (PCR) Nasal Screen MRSA (PCR) (NEGATIVE) Nasal B.pertussis DNA PCR Nasal C.pneumoniae (PCR) Oswal[place] Human Metapneumo PCR Nasal M.pneumoniae (PCR) Nasal SARS-CoV-2 (PCR) Salicylates < 1.5 mg/dL Urine Opiates Screen (NEGATIVE) Ur Buprenorphine Scrn (NEGATIVE) Ur Oxycodone Screen (NEGATIVE) Urine Methadone Screen (NEGATIVE) Ur Barbiturates Screen (NEGATIVE) Ur Tricyclics Screen (NEGATIVE) Ur Phencyclidine Scrn (NEGATIVE) Ur Amphetamine Screen (NEGATIVE) U Methamphetamines Scrn (NEGATIVE) U Benzodiazepines Scrn (NEGATIVE) Urine Cocaine Screen (NEGATIVE) U Cannabinoids Screen (NEGATIVE) Ur Drug Screen Comment Ethyl Alcohol < 10.0 mg/dL Diagnostic Imaging Diagnostic Imaging Results: positive Final report reviewed Diagnostic Imaging Comments: Head CT 08/23/2024: IMPRESSION: No acute intracranial pathology. CT Angio Head/Neck 08/23/2024: IMPRESSION: No significant intracranial arterial abnormality is seen. No significant abnormality is seen within the arteries of the neck. Chest X-ray 08/23/2024: IMPRESSION: Limited exam due to suboptimal positioning. No gross cardiomegaly pulmonary abnormalities visualized. Chest CT 08/23/2024: IMPRESSION: Diffuse pulmonary groundglass opacities may be infectious/inflammatory, versus edema. No dense airspace disease or pleural effusions. Consider future imaging surveillance to assess for resolution. Nonspecific esophageal wall thickening. There is also mild fluid within the esophagus. Findings may represent esophagitis, reflux, and/or dysmotility. Endoscopy could further evaluate if clinically necessary. Abdomen/Pelvis CT: IMPRESSION: There is nonspecific edematous fat stranding adjacent to the pancreatic tail and lesser curvature of the stomach, this may represent gastritis or mild pancreatitis and is nonspecific. No abscess. No drainable ascites. No small bowel obstruction. Other incidental findings above. Other Results/Comments Other Results/Comments: I have reviewed the patient's labs. WBC is high but trending down. Band neutrophil % are high. Neutrophil # and Monocyte # are high. RBC, Hgb, Hct are low and trending lower than yesterday. This is a normocytic anemia. Potassium remains low, which could be explained by patient low appetite and vomiting yesterday. Calcium is low in the setting of normal albumin levels. Alkaline phosphatase is low. Total protein is low. ABX Reporting Has patient been on IV antibiotics over the past 48 hours?: Yes Sepsis Event Note (H) Evaluation Current Stage of Sepsis: Resolved (resolved with empiric IV antibiotic treatment ) Possible source of Sepsis: positive Meningitis Sepsis Criteria Sepsis Criteria: Recorded Respiratory Rate greater than 20, WBC count greater than 12,000 or less than 4000 and Metabolic: lactate > 2 mmol/L Assessment/Plan Problem List (1) Acute bacterial meningitis: Impression: - History of acutely altered mental status after falling ill at home with fatigue, nausea, and vomiting - Patient has stiff neck and mild headache today - CSF on 08/23/2024 showed high WBC, high neutrophils, low lymphocytes and monocytes, low glucose, and high protein - Preliminary CSF culture showing many white blood cells and rare gram positive cocci in pairs suggestive of streptococcus species - These findings are consistent with a diagnosis of acute bacterial meningitis - Plan to continue treating with appropriate empiric IV vancomycin and IV ceftriaxone (Day 2) - Plan to continue dexamethasone 12mg IV every 6 hours (Day 1/) - Plan to continue PO acetaminophen as needed for pain - Plan to continue IV ondansetron and prochloperazine as needed for nausea and vomiting - Discontinued acyclovir as patient is unlikely to be experiencing an additional viral meningitis infection - Discontinued levetiracetam as patient has no history of seizures and no recorded seizures during this stay - Discontinued olanzapine as patient is not showing any signs of aggression (2) Bacteremia due to Streptococcus: Impression: - Preliminary blood culture showing many gram positive cocci in pairs/chains suggestive of streptococcus species - Will continue to treat with appropriate empiric IV vancomycin and IV ceftriaxone (Day 2) that is also being used to treat patient acute bacterial meningitis (3) Sepsis: Impression: - Resolving with appropriate empiric IV antibiotic therapy for bacterial meningitis - WBC still high, will continue to trend Qualifiers: Sepsis type: Streptococcus group A Sepsis acute organ dysfunction status: unspecified Qualified Code(s): A40.0 - Sepsis due to streptococcus, group A (4) Metabolic encephalopathy: Impression: - In the setting of acute bacterial meningitis - Improving - Patient is alert to self, place, date, but still showing confusion surrounding event - He could recall seeing Dr. Be this morning but not what he was being treated for - I am optimistic the patient will continue to improve with appropriate empiric IV antibiotic therapy (5) Hypokalemia: Impression: - Potassium low at 3.2 this morning - Administered a one-time dose of PO potassium chloride 40 meq - Will continue to trend potassium Documented by User: Fortino Be MD 08/24/24 15:01 Objective Lab Results 08/24/24 04:24 08/24/24 04:24 Assessment/Plan Problem List (1) Acute bacterial meningitis: (2) Bacteremia due to Streptococcus: (3) Sepsis: Qualifiers: Sepsis type: Streptococcus group A Sepsis acute organ dysfunction status: unspecified Qualified Code(s): A40.0 - Sepsis due to streptococcus, group A (4) Metabolic encephalopathy: Impression: - In the setting of acute bacterial meningitis - Improving - Patient is alert to self, place, date, but still showing confusion surrounding event - He could recall seeing Dr. Be this morning but not what he was being treated for (5) Hypokalemia:
[2024-08-24] MEDS: cefTRIAXone 2 GM VIAL IVP STA (09:58)
[2024-08-24 10:14] LABS: ESTIMATED AVERAGE GLUCOSE 100 mg/dL (70-100); HEMOGLOBIN A1c% 5.1 % (4.27-6.07)
--- NOTE | 2024-08-24 10:14 | PHARMACY PROGRESS NOTE ---
Best Possible Medication History Admit Date and Time: 08/23/24 2300 Home Medications Medication Instructions Recorded Confirmed Type No Known Home Medications 08/23/24 08/23/24 History Processed by: Nursing Medications reviewed in ED?: Yes Medication History completed: Yes Patient Interview: Pt interview ONLY source [facility] Statement: As the person ultimately responsible for medication therapy, providers are able to order a medication from an existing home medication list in [facility] via the "Reconcile Routine" prior to Confirmation of that medication by patient support assistant. Such practice is discouraged except when the physician, in their clinical judgment, deems that a medical need exists for a medication without regard to previous use.
[2024-08-24] MEDS: SODIUM CHLORIDE 0.9% 500 ML IV ONE (11:13)
[2024-08-24] MEDS: POTASSIUM CHLORIDE 20 MEQ TABLET PO ONE ×2 (11:35→16:25)
[2024-08-24] MEDS: VANCOMYCIN INJ 1 GM, VANCOMYCIN INJ 500 MG in SODIUM CHLORIDE 0.9% 500 ML IV SCH (11:35)
[2024-08-24] MEDS ORDERED: MAGNESIUM SULFATE 1 GM/2 ML VIAL IVP STA (14:43)
[2024-08-24] MEDS ORDERED: SODIUM CHLORIDE 0.9% 50 ML IV ONE (14:54)
[2024-08-24] MEDS: MAGNESIUM SULFATE 1 GM in SODIUM CHLORIDE 0.9% 50 ML IV ONE (15:03)
[2024-08-24] MEDS ORDERED: KETOROLAC 15 MG/ML VIAL IVP PRN (17:53)
[2024-08-24 18:12] LABS: CALCIUM, IONIZED 1.1 mmol/L (1.15-1.33); VBG PH 7.424 (7.31-7.41)
[2024-08-24] MEDS: CALCIUM CARBONATE CHEW 500 MG TABLET PO SCH (18:42)
[2024-08-24] MEDS: IBUPROFEN 400 MG TABLET PO PRN (20:08)
[2024-08-24] MEDS: CYCLOBENZAPRINE 10 MG TABLET PO PRN (20:08)
[2024-08-25 05:09] LABS: RPR Non Reactive (Non Reactive)
[2024-08-25 05:13] LABS: HCT - HEMATOCRIT 32.7 % (42.0-52.0); HGB - HEMOGLOBIN 10.9 g/dL (14.0-18.0); MEAN CORPUSCULAR HEMOGLOBIN 30.2 pg (27.0-31.0); MEAN CORPUSCULAR HGB CONC 33.3 g/dL (32.0-36.0); MEAN CORPUSCULAR VOLUME 90.6 fL (80.0-94.0); MEAN PLATELET VOLUME 10.5 fL (7.4-11.4); RED BLOOD COUNT 3.61 10^6/uL (4.70-6.10); WHITE BLOOD COUNT 19.1 x10^3/uL (4.8-10.8)
[2024-08-25 05:32] LABS: CALCIUM 8.4 mg/dL (8.5-10.3); CREATININE 0.7 mg/dL (0.6-1.3); MAGNESIUM 2.2 mg/dL (1.7-2.3); POTASSIUM 3.7 mmol/L (3.5-4.5)
[2024-08-25 05:41] LABS: CALCIUM, IONIZED 1.18 mmol/L (1.15-1.33); VBG PH 7.407 (7.31-7.41)
[2024-08-25 06:09] LABS: HSV 1 IGG TYPE SPEC Reactive (Non Reactive); HSV 2 IGG TYPE SPEC Non Reactive (Non Reactive)
[2024-08-25] MEDS: POTASSIUM PHOSPHATE 21 MMOL in SODIUM CHLORIDE 0.9% 250 ML IV ONE (08:07)
--- NOTE | 2024-08-25 09:02 | PROVIDER PROGRESS NOTE ---
Documented by User: Karena Gabriel 08/25/24 12:23 Subjective Prog Note Date Prog Note Date: 08/25/24 Prog Note Time: 11:24 Subjective Pt reports feeling: Improved Subjective: Dimitrios continues to improve. He reports minimal neck stiffness today and a 1/10 headache while laying in bed. He reports the headache does get worse when standing up but the pain is tolerable. He was able to shower today. Dimitrios reports he is antsy today since he feels so much better but is confined to a hospital room. However, he understands that he has a serious bacterial meningitis infection that needs to be treated with IV antibiotics. He reports one bowel movement yesterday of normal consistency and denies any constipation or abdominal discomfort. He denies any pain elsewhere in his body. He has no other concerns at this time. Current Medications Current Medications Current Medications: Current Medications Generic Name Dose Route Start Last Admin Trade Name Freq PRN Reason Stop Dose Admin Acetaminophen 650 mg 08/23/24 23:00 08/24/24 13:15 Acetaminophen 325 Mg Tablet PO 650 mg Q4HR PRN Administration Pain 1 to 4, or Fever Cyclobenzaprine HCl 10 mg 08/24/24 09:24 08/24/24 20:08 Cyclobenzaprine 10 Mg Tablet PO 10 mg TID PRN Administration Spasms Dexamethasone Sodium Phosphate 12 mg 08/24/24 07:30 08/25/24 05:08 Dexamethasone 10 Mg/Ml Vial IVP 12 mg Q6HR GIOVANNI Administration Heparin Sodium (Porcine) 5,000 unit 08/24/24 09:00 08/24/24 20:06 Heparin 5,000 Unit/Ml Vial SUBQ 5,000 unit BID GIOVANNI Administration Vancomycin HCl 1 gm/ 500 mls @ 250 mls/hr 08/24/24 11:00 08/25/24 03:12 Vancomycin HCl 500 mg/ Sodium IV Infused Chloride Q12H GIOVANNI Infusion Ceftriaxone Sodium 2 gm/ 100 mls @ 200 mls/hr 08/24/24 09:00 08/24/24 20:49 Sodium Chloride IV Infused Q12H GIOVANNI Infusion Sodium Chloride 1,000 mls @ 75 mls/hr 08/23/24 23:45 08/25/24 05:08 Normal Saline 0.9% IV Not Given .[id number] GIOVANNI Potassium Phosphate 21 mmol/ 257 mls @ 64 mls/hr 08/25/24 08:00 Sodium Chloride IV 08/25/24 12:00 ONCE ONE Protocol Ibuprofen 400 mg 08/24/24 17:53 08/24/24 20:08 Ibuprofen 400 Mg Tablet PO 400 mg Q6HR PRN Administration Moderate Pain (Level 4-6) Ketorolac Tromethamine 15 mg 08/24/24 17:53 Ketorolac 15 Mg/Ml Vial IVP 08/29/24 17:52 Q6HR PRN Severe Pain (Level 7-10) Ondansetron HCl 4 mg 08/23/24 23:00 Ondansetron 4 Mg/2 Ml Vial IVP Q6HR PRN Nausea / Vomiting Polyethylene Glycol 17 gm 08/23/24 23:00 Polyethylene Glycol 3350 17 Gm Packet PO DAILY PRN Constipation Prochlorperazine Edisylate 10 mg 08/23/24 23:00 Prochlorperazine 10 Mg/2 Ml Vial IVP Q6HR PRN Nausea / Vomiting Sodium Chloride 10 ml 08/24/24 01:00 08/25/24 05:08 Sodium Chloride Flush 0.9% 10 Ml Syringe IVP 10 ml 0100,0900,1700 GIOVANNI Administration Sodium Chloride 10 ml 08/23/24 23:00 Sodium Chloride Flush 0.9% 10 Ml Syringe IVP PRN PRN NEEDED PER PROVIDER ORDERS Objective Vital Signs/Intake & Output Reviewed Vital Signs: Yes Vital Signs: Vital Signs x48h Temp Pulse Resp BP Pulse Ox 08/25/24 07:00 63 15 113/73 95 08/25/24 06:00 66 16 97/68 95 08/25/24 05:00 36.8 C 69 17 123/85 97 08/25/24 04:00 57 L 17 101/73 98 08/25/24 03:00 63 10 L 99/65 97 08/25/24 02:00 66 15 98/70 92 08/25/24 01:00 63 16 99/67 98 08/25/24 00:00 70 18 104/68 97 Intake & Output: Intake & Output 08/22/24 08/23/24 08/24/24 08/25/24 23:59 23:59 23:59 23:59 Intake Total 1000 / 1000 5095 / 5095 900 / 900 Output Total 0 / 0 0 / 0 Balance 1000 / 1000 5095 / 5095 900 / 900 Weight (kg) 86.183 kg 79.5 kg 79 kg Objective General Appearance: positive No acute distress (comfortably laying in bed watching TV ) and Alert Eyes Bilateral: positive Normal inspection, PERRL, EOMI, No lid inflammation, Conjunctivae nml and No scleral icterus ENT: positive No signs of dehydration and Other (nontender sinuses); negative Purulent nasal drainage Neck: positive Thyroid nml, No JVD, Trachea midline and Stiff neck (mild, improving); negative Lymphadenopathy (R), Lymphadenopathy (L), Brudzinski's sign or Swelling/bruising Respiratory: positive No respiratory distress and Rales (mild in left and right lower lobes); negative Breath sounds nml, Wheezes or Rhonchi Cardiovascular: positive Regular rate & rhythm Abdomen: positive Non-tender and No distention Skin: positive Color nml (visualized arms, legs, back, chest, head ), No rash (visualized arms, legs, back, chest, head ), Warm and Dry; negative Cyanosis, Diaphoresis or Pallor Extremities: positive Nml appearance and No pedal edema; negative Calf tenderness or Jorje's sign/cords Neurologic/Psychiatric: positive Oriented x3 (person, place, event, time), CN's nml (2-12) (grossly intact), Motor nml (grossly intact) and Mood/affect nml; negative Weakness, Facial droop or Slurred/abnml speech Lab Results 08/25/24 04:50 08/25/24 04:50 Other Labs: Lab Results x24hrs 08/25/24 08/24/24 08/24/24 Range/Units 04:50 20:27 17:57 WBC 19.1 H (4.8-10.8) x10^3/uL RBC 3.61 L (4.70-6.10) 10^6/uL Hgb 10.9 L (14.0-18.0) g/dL Hct 32.7 L (42.0-52.0) % MCV 90.6 (80.0-94.0) fL MCH 30.2 (27.0-31.0) pg MCHC 33.3 (32.0-36.0) g/dL RDW 13.0 (12.0-15.0) % Plt Count 188 (130-450) 10^3/uL MPV 10.5 (7.4-11.4) fL VBG pH 7.407 7.424 H (7.31-7.41) Ionized Calcium 1.18 1.10 L (1.15-1.33) mmol/L Sodium 147 H (135-145) mmol/L Potassium 3.7 3.8 (3.5-4.5) mmol/L Chloride 117 H (101-111) mmol/L Carbon Dioxide 24 (21-32) mmol/L Anion Gap 6.0 (6-13) BUN 16 (6-20) mg/dL Creatinine 0.7 (0.6-1.3) mg/dL Estimated GFR (MDRD) 117 (>89) Glucose 144 H (74-104) mg/dL Estimat Average Glucose (70-100) mg/dL Hemoglobin A1c % (4.27-6.07) % Calcium 8.4 L (8.5-10.3) mg/dL Phosphorus 1.5 L (2.5-5.0) mg/dL Magnesium 2.2 2.1 (1.7-2.3) mg/dL RPR (Non Reactive) HSV I IgG Ab (Non Reactive) HSV II IgG (Non Reactive) 08/24/24 08/24/24 Range/Units 15:37 04:24 WBC (4.8-10.8) x10^3/uL RBC (4.70-6.10) 10^6/uL Hgb (14.0-18.0) g/dL Hct (42.0-52.0) % MCV (80.0-94.0) fL MCH (27.0-31.0) pg MCHC (32.0-36.0) g/dL RDW (12.0-15.0) % Plt Count (130-450) 10^3/uL MPV (7.4-11.4) fL VBG pH (7.31-7.41) Ionized Calcium (1.15-1.33) mmol/L Sodium (135-145) mmol/L Potassium 3.6 (3.5-4.5) mmol/L Chloride (101-111) mmol/L Carbon Dioxide (21-32) mmol/L Anion Gap (6-13) BUN (6-20) mg/dL Creatinine (0.6-1.3) mg/dL Estimated GFR (MDRD) (>89) Glucose (74-104) mg/dL Estimat Average Glucose 100 (70-100) mg/dL Hemoglobin A1c % 5.1 (4.27-6.07) % Calcium (8.5-10.3) mg/dL Phosphorus (2.5-5.0) mg/dL Magnesium (1.7-2.3) mg/dL RPR Non Reactive (Non Reactive) HSV I IgG Ab Reactive A (Non Reactive) HSV II IgG Non Reactive (Non Reactive) Diagnostic Imaging Diagnostic Imaging Results: positive Final report reviewed Diagnostic Imaging Comments: Head CT 08/23/2024: IMPRESSION: No acute intracranial pathology. CT Angio Head/Neck 08/23/2024: IMPRESSION: No significant intracranial arterial abnormality is seen. No significant abnormality is seen within the arteries of the neck. Chest X-ray 08/23/2024: IMPRESSION: Limited exam due to suboptimal positioning. No gross cardiomegaly pulmonary abnormalities visualized. Chest CT 08/23/2024: IMPRESSION: Diffuse pulmonary groundglass opacities may be infectious/inflammatory, versus edema. No dense airspace disease or pleural effusions. Consider future imaging surveillance to assess for resolution. Nonspecific esophageal wall thickening. There is also mild fluid within the esophagus. Findings may represent esophagitis, reflux, and/or dysmotility. Endoscopy could further evaluate if clinically necessary. Abdomen/Pelvis CT 08/23/2024: IMPRESSION: There is nonspecific edematous fat stranding adjacent to the pancreatic tail and lesser curvature of the stomach, this may represent gastritis or mild pancreatitis and is nonspecific. No abscess. No drainable ascites. No small bowel obstruction. Other incidental findings above. Other Results/Comments Other Results/Comments: I have reviewed the patient's labs. His WBC remains elevated but is trending down. RBC, Hgb, Hct remain low and are trending lower. pH and ionized calcium are now normal. Sodium and chloride are now elevated, this is likely in response to IV fluids. Calcium is low but trending up. Phosphorous is low. ABX Reporting Has patient been on IV antibiotics over the past 48 hours?: Yes Sepsis Event Note (H) Evaluation Current Stage of Sepsis: Resolved (resolved with empiric IV antibiotic treatment ) Possible source of Sepsis: positive Meningitis Sepsis Criteria Sepsis Criteria: Recorded Respiratory Rate greater than 20, WBC count greater than 12,000 or less than 4000 and Metabolic: lactate > 2 mmol/L Assessment/Plan Problem List (1) Acute bacterial meningitis: Impression: - Patient's stiff neck and headache are improving and he denies any nausea - CSF on 08/23/2024 showed high WBC, high neutrophils, low lymphocytes and monocytes, low glucose, and high protein - Preliminary CSF culture showing many white blood cells and rare gram positive cocci in pairs suggestive of streptococcus species - These findings are consistent with a diagnosis of acute bacterial meningitis - Plan to continue treating with appropriate empiric IV vancomycin and IV ceftriaxone (Day 3) - Plan to continue dexamethasone 12mg IV every 6 hours (Day 2/4) - Plan to continue PO acetaminophen as needed for pain - Plan to continue IV ondansetron and prochloperazine as needed for nausea and vomiting (2) Bacteremia due to Streptococcus: Impression: - Blood culture (PCR) from 08/23/2024 final result interpretation found Streptococcus pnuemoniae - Will continue to treat with appropriate empiric IV vancomycin and IV ceftriaxone (Day 3) that is also being used to treat patient's acute bacterial meningitis (3) Sepsis: Impression: - Resolving with appropriate empiric IV antibiotic therapy for bacterial meningitis - Patient remains afebrile and normotensive - WBC still high but trending down, will continue to trend Qualifiers: Sepsis acute organ dysfunction status: unspecified Sepsis type: S treptococcus group A Qualified Code(s): A40.0 - Sepsis due to streptococcus, group A (4) Metabolic encephalopathy: Impression: - In the setting of acute bacterial meningitis - Improving - Patient is alert to self, place, date, and event (5) Hypernatremia: Impression: - In the setting of sodium chloride IV fluid replacement - Will consider discontinuing IV fluids if patient continues to tolerate oral intake well (6) Hypokalemia: Impression: - Resolved with a one-time dose of PO potassium chloride 40 meq - Potassium normal at 3.7 mmpl/L this morning - Will continue to trend Documented by User: Fortino Be MD 08/25/24 12:23 Objective Lab Results 08/25/24 04:50 08/25/24 04:50 Assessment/Plan Problem List (1) Acute bacterial meningitis: Impression: - Patient's stiff neck and headache are improving and he denies any nausea - CSF on 08/23/2024 showed high WBC, high neutrophils, low lymphocytes and monocytes, low glucose, and high protein - Preliminary CSF culture showing many white blood cells and rare gram positive cocci in pairs suggestive of streptococcus species - These findings are consistent with a diagnosis of acute bacterial meningitis - Plan to continue treating with appropriate empiric IV vancomycin and IV ceftriaxone (Day 3) - Plan to continue dexamethasone 12mg IV every 6 hours (Day 2/4) - Plan to continue PO acetaminophen and ibuprofen as needed for pain - Plan to continue IV ondansetron and prochloperazine as needed for nausea and vomiting (2) Bacteremia due to Streptococcus: (3) Sepsis: Qualifiers: Sepsis acute organ dysfunction status: unspecified Sepsis type: S treptococcus group A Qualified Code(s): A40.0 - Sepsis due to streptococcus, group A (4) Metabolic encephalopathy: Impression: - Resolved. In the setting of acute bacterial meningitis - Patient is alert to self, place, date, and event (5) Hypernatremia: Impression: - Iatrogenic in the setting of sodium chloride IV fluid replacement. Rate halved this morning - Will consider discontinuing IV fluids if patient continues to tolerate oral intake well (6) Hypokalemia:
[2024-08-25 14:28] LABS: CALCIUM, IONIZED 1.05 mmol/L (1.15-1.33); VBG PH 7.444 (7.31-7.41)
[2024-08-25 14:31] LABS: MAGNESIUM 2.2 mg/dL (1.7-2.3); PHOSPHORUS 1.6 mg/dL (2.5-5.0); POTASSIUM 3.7 mmol/L (3.5-4.5)
[2024-08-25] MEDS: POTASSIUM CHLORIDE 20 MEQ TABLET PO ONE (16:13)
[2024-08-25] MEDS: CALCIUM CARBONATE CHEW 500 MG TABLET PO SCH (16:14)
[2024-08-25] MEDS: POTASSIUM PHOSPHATE 15 MMOL in SODIUM CHLORIDE 0.9% 250 ML IV ONE (16:14)
[2024-08-25] MEDS: ONDANSETRON 4 MG/2 ML VIAL IVP PRN (18:57)
[2024-08-26 04:28] LABS: HCT - HEMATOCRIT 33.4 % (42.0-52.0); HGB - HEMOGLOBIN 10.8 g/dL (14.0-18.0); MEAN CORPUSCULAR HGB CONC 32.3 g/dL (32.0-36.0); MEAN CORPUSCULAR VOLUME 89.5 fL (80.0-94.0); MEAN PLATELET VOLUME 11.2 fL (7.4-11.4); RED BLOOD COUNT 3.73 10^6/uL (4.70-6.10); RED CELL DISTRIBUTION WIDTH 13.3 % (12.0-15.0); WHITE BLOOD COUNT 13.9 x10^3/uL (4.8-10.8)
[2024-08-26 04:45] LABS: CREATININE 0.7 mg/dL (0.6-1.3); POTASSIUM 3.9 mmol/L (3.5-4.5)
[2024-08-26] MEDS: valACYclovir 500 MG TABLET PO SCH (09:55)
--- NOTE | 2024-08-26 12:03 | PROVIDER PROGRESS NOTE ---
Documented by User: Karena Gabriel 08/26/24 13:34 Subjective Prog Note Date Prog Note Date: 08/26/24 Subjective Pt reports feeling: Improved Subjective: Dimitrios continues to improve. His headache is well-controlled and he reports 1/10 pain presently. He notes some mild wooziness when he gets up to walk to the bathroom. He denies any vertigo or dizziness at rest. His neck stiffness is resolving. He is able to use the restroom on his own and does not note any abdominal discomfort. He denies any other concerns at this time. Current Medications Current Medications Current Medications: Current Medications Generic Name Dose Route Start Last Admin Trade Name Freq PRN Reason Stop Dose Admin Acetaminophen 650 mg 08/23/24 23:00 08/24/24 13:15 Acetaminophen 325 Mg Tablet PO 650 mg Q4HR PRN Administration Pain 1 to 4, or Fever Cyclobenzaprine HCl 10 mg 08/24/24 09:24 08/24/24 20:08 Cyclobenzaprine 10 Mg Tablet PO 10 mg TID PRN Administration Spasms Dexamethasone Sodium Phosphate 12 mg 08/24/24 07:30 08/26/24 11:22 Dexamethasone 10 Mg/Ml Vial IVP 12 mg Q6HR GIOVANNI Administration Heparin Sodium (Porcine) 5,000 unit 08/24/24 09:00 08/26/24 08:13 Heparin 5,000 Unit/Ml Vial SUBQ 5,000 unit BID GIOVANNI Administration Vancomycin HCl 1 gm/ 500 mls @ 250 mls/hr 08/24/24 11:00 08/26/24 11:22 Vancomycin HCl 500 mg/ Sodium IV 250 mls/hr Chloride Q12H GIOVANNI Administration Ceftriaxone Sodium 2 gm/ 100 mls @ 200 mls/hr 08/24/24 09:00 08/26/24 09:55 Sodium Chloride IV Infused Q12H GIOVANNI Infusion Ibuprofen 400 mg 08/24/24 17:53 08/25/24 18:05 Ibuprofen 400 Mg Tablet PO 400 mg Q6HR PRN Administration Moderate Pain (Level 4-6) Ketorolac Tromethamine 15 mg 08/24/24 17:53 Ketorolac 15 Mg/Ml Vial IVP 08/29/24 17:52 Q6HR PRN Severe Pain (Level 7-10) Ondansetron HCl 4 mg 08/23/24 23:00 08/25/24 18:57 Ondansetron 4 Mg/2 Ml Vial IVP 4 mg Q6HR PRN Administration Nausea / Vomiting Abreva 1 each 08/26/24 11:00 TOP BID GIOVANNI Polyethylene Glycol 17 gm 08/23/24 23:00 Polyethylene Glycol 3350 17 Gm Packet PO DAILY PRN Constipation Prochlorperazine Edisylate 10 mg 08/23/24 23:00 Prochlorperazine 10 Mg/2 Ml Vial IVP Q6HR PRN Nausea / Vomiting Sodium Chloride 10 ml 08/24/24 01:00 08/26/24 08:13 Sodium Chloride Flush 0.9% 10 Ml Syringe IVP 10 ml 0100,0900,1700 GIOVANNI Administration Sodium Chloride 10 ml 08/23/24 23:00 Sodium Chloride Flush 0.9% 10 Ml Syringe IVP PRN PRN NEEDED PER PROVIDER ORDERS Objective Vital Signs/Intake & Output Reviewed Vital Signs: Yes Vital Signs: Vital Signs x48h Temp Pulse Resp BP Pulse Ox 08/26/24 08:00 36.7 C 62 16 129/86 92 Intake & Output: Intake & Output 08/23/24 08/24/24 08/25/24 08/26/24 23:59 23:59 23:59 23:59 Intake Total 1000 / 1000 5095 / 5095 4754 / 4754 1090 / 1090 Output Total 0 / 0 0 / 0 0 / 0 Balance 1000 / 1000 5095 / 5095 4754 / 4754 1090 / 1090 Weight (kg) 86.183 kg 79.5 kg 79 kg 79.5 kg Objective General Appearance: positive No acute distress (sitting in bed watching TV conversing easily ) and Alert Eyes Bilateral: positive PERRL, EOMI, No lid inflammation, Conjunctivae nml and No scleral icterus ENT: positive No signs of dehydration; negative Purulent nasal drainage Neck: positive No JVD, Trachea midline and Stiff neck (resolving); negative Brudzinski's sign Respiratory: positive No respiratory distress and Rales (posterior, mild, left and right lower lobes); negative Wheezes or Rhonchi Cardiovascular: positive Bradycardia Abdomen: positive Non-tender and No distention Skin: positive Color nml (visualized head, chest, back, arms, legs ), No rash (visualized head, chest, back, arms, legs ), Warm and Dry; negative Cyanosis, Diaphoresis or Pallor Extremities: positive Full ROM, Nml appearance and No pedal edema; negative Calf tenderness or Jorje's sign/cords Neurologic/Psychiatric: positive Oriented x3, CN's nml (2-12) (grossly intact ), Motor nml (grossly) and Mood/affect nml; negative Facial droop or Slurred/abnml speech Lab Results 08/26/24 04:13 08/26/24 04:13 Other Labs: Lab Results x24hrs 08/26/24 08/25/24 Range/Units 04:13 14:05 WBC 13.9 H (4.8-10.8) x10^3/uL RBC 3.73 L (4.70-6.10) 10^6/uL Hgb 10.8 L (14.0-18.0) g/dL Hct 33.4 L (42.0-52.0) % MCV 89.5 (80.0-94.0) fL MCH 29.0 (27.0-31.0) pg MCHC 32.3 (32.0-36.0) g/dL RDW 13.3 (12.0-15.0) % Plt Count 196 (130-450) 10^3/uL MPV 11.2 (7.4-11.4) fL VBG pH 7.444 H (7.31-7.41) Ionized Calcium 1.05 L (1.15-1.33) mmol/L Sodium 144 (135-145) mmol/L Potassium 3.9 3.7 (3.5-4.5) mmol/L Chloride 116 H (101-111) mmol/L Carbon Dioxide 22 (21-32) mmol/L Anion Gap 6.0 (6-13) BUN 20 (6-20) mg/dL Creatinine 0.7 (0.6-1.3) mg/dL Estimated GFR (MDRD) 117 (>89) Glucose 135 H (74-104) mg/dL Calcium 9.0 (8.5-10.3) mg/dL Phosphorus 2.5 1.6 L (2.5-5.0) mg/dL Magnesium 2.0 2.2 (1.7-2.3) mg/dL Diagnostic Imaging Diagnostic Imaging Results: positive Final report reviewed Diagnostic Imaging Comments: Head CT 08/23/2024: IMPRESSION: No acute intracranial pathology. CT Angio Head/Neck 08/23/2024: IMPRESSION: No significant intracranial arterial abnormality is seen. No significant abnormality is seen within the arteries of the neck. Chest X-ray 08/23/2024: IMPRESSION: Limited exam due to suboptimal positioning. No gross cardiomegaly pulmonary abnormalities visualized. Chest CT 08/23/2024: IMPRESSION: Diffuse pulmonary groundglass opacities may be infectious/inflammatory, versus edema. No dense airspace disease or pleural effusions. Consider future imaging surveillance to assess for resolution. Nonspecific esophageal wall thickening. There is also mild fluid within the esophagus. Findings may represent esophagitis, reflux, and/or dysmotility. Endoscopy could further evaluate if clinically necessary. Abdomen/Pelvis CT 08/23/2024: IMPRESSION: There is nonspecific edematous fat stranding adjacent to the pancreatic tail and lesser curvature of the stomach, this may represent gastritis or mild pancreatitis and is nonspecific. No abscess. No drainable ascites. No small bowel obstruction. Other incidental findings above. Other Results/Comments Other Results/Comments: I have reviewed the patient's labs. His WBC is still high but trending down. His RBC and Hct remain low but are trending up. His Hgb is still low. His sodium is now normal. His chloride is high but trending down. Calcium is now normal. Sepsis Event Note (H) Evaluation Current Stage of Sepsis: Resolved (resolved with empiric IV antibiotic treatment ) Possible source of Sepsis: positive Meningitis Sepsis Criteria Sepsis Criteria: Recorded Respiratory Rate greater than 20, WBC count greater than 12,000 or less than 4000 and Metabolic: lactate > 2 mmol/L Assessment/Plan Problem List (1) Acute bacterial meningitis: Impression: - Patient's stiff neck si resolving and headache pain is well-controlled - CSF on 08/23/2024 showed high WBC, high neutrophils, low lymphocytes and monocytes, low glucose, and high protein - Preliminary CSF culture showing many white blood cells and rare gram positive cocci in pairs suggestive of streptococcus species - These findings are consistent with a diagnosis of acute bacterial meningitis - Blood culture from 08/23/2024 showed susceptibility to ceftriaxone - Vancomycin discontinued - Plan to continue treating with appropriate IV ceftriaxone (Day 4) - Plan to continue dexamethasone 12mg IV every 6 hours (Day 3/4) - Plan to continue PO acetaminophen and ibuprofen needed for pain - Plan to continue IV ondansetron and prochloperazine as needed for nausea and vomiting (2) Bacteremia due to Streptococcus: Impression: - Blood culture (PCR) from 08/23/2024 final result interpretation found Streptococcus pnuemoniae - Preliminary blood cultures from this morning showing no initial bacterial growth - Awaiting echocardiogram results to rule-out any vegetations or endocarditis - Blood culture from 08/23/2024 showed susceptibility to ceftriaxone - Vancomycin discontinued - Will continue to treat with appropriate IV ceftriaxone (Day 4) that is also being used to treat patient's acute bacterial meningitis (3) Sepsis: Impression: - Resolving with appropriate empiric IV antibiotic therapy for bacterial meningitis - Patient remains afebrile and normotensive - WBC still high but trending down, will continue to trend Qualifiers: Sepsis acute organ dysfunction status: unspecified Sepsis type: S treptococcus group A Qualified Code(s): A40.0 - Sepsis due to streptococcus, group A (4) Metabolic encephalopathy: Impression: - Resolved. In the setting of acute bacterial meningitis - Patient is alert to self, place, date, and event - No gross neurological deficits observed (5) Hypernatremia: Impression: - Iatrogenic in the setting of sodium chloride IV fluid replacement - IV sodium chloride discontinued as patient is tolerating oral intake well - Advised patient to try to finish meals and reminded him to drink fluids throughout the day (6) Hypokalemia: Impression: - Resolved with a one-time dose of PO potassium chloride 40 meq on 08/25/2024 - Potassium normal at 3.9 mmpl/L this morning - Will continue to trend Documented by User: Fortino Be MD 08/26/24 13:36 Objective Lab Results 08/26/24 04:13 08/26/24 04:13 Assessment/Plan Problem List (1) Acute bacterial meningitis: Impression: - Patient's stiff neck is resolving and headache pain is well-controlled - CSF on 08/23/2024 showed high WBC, high neutrophils, low lymphocytes and monocytes, low glucose, and high protein - Preliminary CSF culture showing many white blood cells and rare gram positive cocci in pairs suggestive of streptococcus species - These findings are consistent with a diagnosis of acute bacterial meningitis - Blood culture from 08/23/2024 showed streptococcus pneumoniae with susceptibility to ceftriaxone - Vancomycin discontinued - Plan to continue treating with appropriate IV ceftriaxone (Day 4) - Plan to continue dexamethasone 12mg IV every 6 hours (Day 3/4) - Plan to continue PO acetaminophen and ibuprofen needed for pain - Plan to continue IV ondansetron and prochloperazine as needed for nausea and vomiting (2) Bacteremia due to Streptococcus: Impression: - Blood culture (PCR) from 08/23/2024 final result interpretation found Streptococcus pnuemoniae - Preliminary blood cultures from 08/25 showing no initial bacterial growth - Awaiting echocardiogram results to rule-out any vegetations or endocarditis - Blood culture from 08/23/2024 showed susceptibility to ceftriaxone - Vancomycin discontinued - Will continue to treat with appropriate IV ceftriaxone (Day 4) - Once repeat blood cultures are negative, will have PICC line placed. SW and CM working on getting home infusion set up for 14 day IV course (3) Sepsis: Impression: - Resolving, patient remains afebrile and normotensive - WBC still high but trending down, will continue to trend Qualifiers: Sepsis acute organ dysfunction status: unspecified Sepsis type: S treptococcus group A Qualified Code(s): A40.0 - Sepsis due to streptococcus, group A (4) Metabolic encephalopathy: (5) Hypernatremia: Impression: - Resolved. Iatrogenic in the setting of sodium chloride IV fluid replacement - IV sodium chloride discontinued as patient is tolerating oral intake well - Advised patient to try to finish meals and reminded him to drink fluids throughout the day (6) Hypokalemia:
[2024-08-26] MEDS: SODIUM CHLORIDE FLUSH 0.9% 10 ML SYRINGE IVP PRN (20:38)
[2024-08-27 04:47] LABS: HCT - HEMATOCRIT 34.5 % (42.0-52.0); HGB - HEMOGLOBIN 11.4 g/dL (14.0-18.0); MEAN CORPUSCULAR HEMOGLOBIN 29.5 pg (27.0-31.0); MEAN CORPUSCULAR VOLUME 89.4 fL (80.0-94.0); MEAN PLATELET VOLUME 11.5 fL (7.4-11.4); RED BLOOD COUNT 3.86 10^6/uL (4.70-6.10); RED CELL DISTRIBUTION WIDTH 13.3 % (12.0-15.0); WHITE BLOOD COUNT 8.4 x10^3/uL (4.8-10.8)
[2024-08-27 05:04] LABS: CALCIUM 8.8 mg/dL (8.5-10.3); CREATININE 0.8 mg/dL (0.6-1.3); MAGNESIUM 1.9 mg/dL (1.7-2.3); POTASSIUM 3.9 mmol/L (3.5-4.5)
[2024-08-27] MEDS: ENOXAPARIN 40 MG/0.4 ML SYRINGE SUBQ SCH (08:45)
--- NOTE | 2024-08-27 10:20 | PROVIDER PROGRESS NOTE ---
Documented by User: Karena Rios 08/27/24 15:42 Subjective Prog Note Date Prog Note Date: 08/27/24 Prog Note Time: 14:17 Subjective Pt reports feeling: Improved Subjective: Dimitrios continues to feel better. He reports his headache pain is still well- controlled with medications, and worse when he stands up. He denies any neck stiffness today. He still reports some wooziness when he walks but he states it is back at his baseline. He has had some baseline ataxia after having surgery on an acoustic neuroma in the past. He feels like his breathing is shallow but denies any chest pain. He is coughing when he uses his incentive spirometer but is committed to using it to open up his airways. He denies any other pain, numbness, tingling, or weakness. He reports he did not have a bowel movement yesterday or today but is able to pass gas. He has no other concerns at this time. Current Medications Current Medications Current Medications: Current Medications Generic Name Dose Route Start Last Admin Trade Name Freq PRN Reason Stop Dose Admin Acetaminophen 650 mg 08/23/24 23:00 08/24/24 13:15 Acetaminophen 325 Mg Tablet PO 650 mg Q4HR PRN Administration Pain 1 to 4, or Fever Cyclobenzaprine HCl 10 mg 08/24/24 09:24 08/24/24 20:08 Cyclobenzaprine 10 Mg Tablet PO 10 mg TID PRN Administration Spasms Dexamethasone Sodium Phosphate 12 mg 08/24/24 07:30 08/27/24 06:05 Dexamethasone 10 Mg/Ml Vial IVP 12 mg Q6HR GIOVANNI Administration Enoxaparin Sodium 40 mg 08/27/24 09:00 08/27/24 08:45 Enoxaparin 40 Mg/0.4 Ml Syringe SUBQ 40 mg DAILY GIOVANNI Administration Ceftriaxone Sodium 2 gm/ 100 mls @ 200 mls/hr 08/24/24 09:00 08/27/24 09:25 Sodium Chloride IV Infused Q12H GIOVANNI Infusion Ibuprofen 400 mg 08/24/24 17:53 08/27/24 07:55 Ibuprofen 400 Mg Tablet PO 400 mg Q6HR PRN Administration Moderate Pain (Level 4-6) Ketorolac Tromethamine 15 mg 08/24/24 17:53 Ketorolac 15 Mg/Ml Vial IVP 01/22/25 17:52 Q6HR PRN Severe Pain (Level 7-10) Ondansetron HCl 4 mg 08/23/24 23:00 08/25/24 18:57 Ondansetron 4 Mg/2 Ml Vial IVP 4 mg Q6HR PRN Administration Nausea / Vomiting Abreva 1 each 08/26/24 14:00 08/27/24 08:45 TOP 1 each BID GIOVANNI Administration Polyethylene Glycol 17 gm 08/23/24 23:00 Polyethylene Glycol 3350 17 Gm Packet PO DAILY PRN Constipation Prochlorperazine Edisylate 10 mg 08/23/24 23:00 Prochlorperazine 10 Mg/2 Ml Vial IVP Q6HR PRN Nausea / Vomiting Sodium Chloride 10 ml 08/24/24 01:00 08/27/24 08:47 Sodium Chloride Flush 0.9% 10 Ml Syringe IVP 10 ml 0100,0900,1700 GIOVANNI Administration Sodium Chloride 10 ml 08/23/24 23:00 08/27/24 06:05 Sodium Chloride Flush 0.9% 10 Ml Syringe IVP 10 ml PRN PRN Administration NEEDED PER PROVIDER ORDERS Objective Vital Signs/Intake & Output Reviewed Vital Signs: Yes Vital Signs: Vital Signs x48h Temp Pulse Resp BP Pulse Ox 08/27/24 08:00 36.9 C 48 L 22 123/74 98 08/27/24 04:00 36.9 C 47 L 12 123/74 94 Intake & Output: Intake & Output 08/24/24 08/25/24 08/26/24 08/27/24 23:59 23:59 23:59 23:59 Intake Total 5095 / 5095 4754 / 4754 2750 / 2750 440 / 440 Output Total 0 / 0 0 / 0 0 / 0 0 / 0 Balance 5095 / 5095 4754 / 4754 2750 / 2750 440 / 440 Weight (kg) 79.5 kg 79 kg 79.5 kg 81 kg Objective General Appearance: positive No acute distress (sitting up in bed chatting with his ) and Alert Eyes Bilateral: positive PERRL, EOMI, No lid inflammation, Conjunctivae nml and No scleral icterus ENT: positive No signs of dehydration Neck: positive No JVD and Trachea midline; negative Stiff neck (resolved) Respiratory: positive No respiratory distress and Rales (mild, posterior left lower lobe ); negative Breath sounds nml Cardiovascular: positive No murmur and Bradycardia Abdomen: positive Non-tender, Nml bowel sounds and No distention Skin: positive Color nml (visualized head, chest, back, arms, lower legs ), No rash (visualized head, chest, back, arms, lower legs ), Warm and Dry; negative Cyanosis or Diaphoresis Extremities: positive Full ROM, Nml appearance and No pedal edema; negative Calf tenderness Neurologic/Psychiatric: positive Oriented x3, CN's nml (2-12) (grossly intact ), Motor nml (grossly ) and Mood/affect nml; negative Facial droop or Slurred/abnml speech Lab Results 08/27/24 04:03 08/27/24 04:03 Other Labs: Lab Results x24hrs 08/27/24 Range/Units 04:03 WBC 8.4 (4.8-10.8) x10^3/uL RBC 3.86 L (4.70-6.10) 10^6/uL Hgb 11.4 L (14.0-18.0) g/dL Hct 34.5 L (42.0-52.0) % MCV 89.4 (80.0-94.0) fL MCH 29.5 (27.0-31.0) pg MCHC 33.0 (32.0-36.0) g/dL RDW 13.3 (12.0-15.0) % Plt Count 207 (130-450) 10^3/uL MPV 11.5 H (7.4-11.4) fL Sodium 143 (135-145) mmol/L Potassium 3.9 (3.5-4.5) mmol/L Chloride 111 (101-111) mmol/L Carbon Dioxide 24 (21-32) mmol/L Anion Gap 8.0 (6-13) BUN 24 H (6-20) mg/dL Creatinine 0.8 (0.6-1.3) mg/dL Estimated GFR (MDRD) 100 (>89) Glucose 126 H (74-104) mg/dL Calcium 8.8 (8.5-10.3) mg/dL Magnesium 1.9 (1.7-2.3) mg/dL Diagnostic Imaging Diagnostic Imaging Results: positive Final report reviewed Diagnostic Imaging Comments: Head CT 08/23/2024: IMPRESSION: No acute intracranial pathology. CT Angio Head/Neck 08/23/2024: IMPRESSION: No significant intracranial arterial abnormality is seen. No significant abnormality is seen within the arteries of the neck. Chest X-ray 08/23/2024: IMPRESSION: Limited exam due to suboptimal positioning. No gross cardiomegaly pulmonary abnormalities visualized. Chest CT 08/23/2024: IMPRESSION: Diffuse pulmonary groundglass opacities may be infectious/inflammatory, versus edema. No dense airspace disease or pleural effusions. Consider future imaging surveillance to assess for resolution. Nonspecific esophageal wall thickening. There is also mild fluid within the esophagus. Findings may represent esophagitis, reflux, and/or dysmotility. Endoscopy could further evaluate if clinically necessary. Abdomen/Pelvis CT 08/23/2024: IMPRESSION: There is nonspecific edematous fat stranding adjacent to the pancreatic tail and lesser curvature of the stomach, this may represent gastritis or mild pancreatitis and is nonspecific. No abscess. No drainable ascites. No small bowel obstruction. Other incidental findings above. Echocardiogram 08/24/2024: Interpretation Summary: 1. Normal left ventricular size and function, EF 65%. There is mild diastolic dysfunction but the left atrium is normal. 2. Normal valve structure and function. 3. Normal right ventricular size and function. Pulmonary pressure could not be measured, but right atrial pressure is normal. Other Results/Comments Other Results/Comments: I have reviewed the patient's labs. His WBC is now within normal limits. His RBC, Hgb, and Hct remain low but are trending up. MPV is elevated. BUN is elevated. ABX Reporting Has patient been on IV antibiotics over the past 48 hours?: Yes Sepsis Event Note (H) Evaluation Current Stage of Sepsis: Resolved (resolved with empiric IV antibiotic treatment ) Possible source of Sepsis: positive Meningitis Sepsis Criteria Sepsis Criteria: Recorded Respiratory Rate greater than 20, WBC count greater than 12,000 or less than 4000 and Metabolic: lactate > 2 mmol/L Assessment/Plan Problem List (1) Acute bacterial meningitis: Impression: - Patient's stiff neck is resolving and headache pain is well-controlled - Blood culture from 08/23/2024 showed susceptibility to ceftriaxone - CSF culture from 08/23/2024 showed susceptibility to ceftriaxone - Plan to continue treating with appropriate IV ceftriaxone (Day 5) - Plan to finish dexamethasone 12mg IV every 6 hours today (Day 4/4) - Plan to continue PO acetaminophen and ibuprofen needed for pain - Plan to continue IV ondansetron and prochloperazine as needed for nausea and vomiting - PICC line ordered today so patient can discharge with home infusions (2) Bacteremia due to Streptococcus: Impression: - Echocardiogram performed on 08/24/2024 did not note any vegetations or signs of endocarditis - Preliminary repeat blood cultures from 08/26/2024 have shown no growth day 2 - Blood culture from 08/23/2024 showed susceptibility to ceftriaxone - Plan to continue treating with appropriate IV ceftriaxone (Day 5) - PICC line ordered so patient can discharge with home infusions (3) Sepsis: Impression: - Resolved - Patient remains afebrile and normotensive - WBC now within normal limits Qualifiers: Sepsis acute organ dysfunction status: unspecified Sepsis type: S treptococcus group A Qualified Code(s): A40.0 - Sepsis due to streptococcus, group A (4) Metabolic encephalopathy: Impression: - Resolved. In the setting of acute bacterial meningitis - Patient is alert to self, place, date, and event - No gross neurological deficits observed (5) Hypernatremia: Impression: - Resolved. Iatrogenic in the setting of sodium chloride IV fluid replacement - Reminded patient to try to finish his meals and reminded him to drink fluids throughout the day (6) Hypokalemia: Impression: - Resolved with a one-time dose of PO potassium chloride 40 meq on 08/25/2024 - Potassium normal at 3.9 mmpl/L this morning Documented by User: Fortino Be MD 08/27/24 15:50 Objective Lab Results 08/27/24 04:03 08/27/24 04:03 Assessment/Plan Problem List (1) Acute bacterial meningitis: (2) Bacteremia due to Streptococcus: (3) Sepsis: Qualifiers: Sepsis acute organ dysfunction status: unspecified Sepsis type: S treptococcus group A Qualified Code(s): A40.0 - Sepsis due to streptococcus, group A (4) Metabolic encephalopathy: (5) Hypernatremia: (6) Hypokalemia:
--- NOTE | 2024-08-27 12:21 | Discharge Summary ---
"Discharge Summary Admit Date: 08/23/24 Discharge Date: 08/27/24 Discharging Provider: Dr. Fortino Be Code Status: Attempt Resuscitation Discharge Facility Name: Home DIAGNOSES Admission Diagnoses: Meningoencephalitis Metabolic encephalopathy Sepsis Discharge Diagnoses with Status of Each Condition: Acute bacterial meningitisblood cultures, CSF cultures are both growing Streptococcus pneumonia sensitive to Rocephin. Repeat blood cultures done 08/25 are no growth to date. Continue 14-day course of IV Rocephin; today is day 5, as well as he will need 9 more days at home. Continue Tylenol, Motrin as needed for pain. PICC line placed for IV antibiotics. Bacteremia due to Streptococcusmanagement as above. Sepsisresolved, patient afebrile and with no leukocytosis. Metabolic encephalopathyresolved. Hyponatremiaresolved. Hypokalemiaresolved. HPI History of Present Illness: Per Dr. Rose: 54M c no significan medical hx p/w sudden confusion and agitation. Patient reportedly was baseline self yesterday. This morning patient awoke and had a headache. He went back to be after taking acetaminophen. He awoke later during the day and had n/v. Patient went back to bed again. He was seen altered and nonverbal and not following command in the afternoon by . mentions no recent trauma or travel or new medications. No prior hx of similar event. Patient has no seizure hx. He did have a left acoustic neuroma removed in the past. Daughter had a transient GI infection that resolved. He was brought into the ED as code stroke. CT brain and CTA head were negative for acute findings. Patient was given sedation for LP. He is currently somnolent. CONSULTS | PROCEDURES Consultations: Pharmacy, teleneurology Procedures: Lumbar puncture, CT head without contrast, chest CT, abdomen/pelvis CT HOSPITAL COURSE Hospital Course: Patient is a 54-year-old male with a history of acoustic neuroma s/p surgical excision in 2022, frequent sinusitis who presented with altered mentation, fevers, chills at home. In the emergency room, CT head, CT abdomen/pelvis, as well as a CT chest was done. On admission, teleneurology was spoken with and code stroke was called. They recommended against tPA. Lumbar puncture was done in the emergency roomthis showed high WBC count, neutrophil predominance, as well as low glucose. He was treated initially empirically for meningitis with acyclovir, Rocephin, vancomycin. Started on steroids as well. Blood cultures grew Streptococcus pneumonia. CSF culture grew the same. It was sensitive to Rocephin. Patient completed 4 days of IV Decadron. Plan is for 14 days of Rocephin 2 grams twice a day. He was advised to follow-up closely with the primary care doctor on discharge. During his stay here, he did have sinus bradycardia. He states his heart rate does run low at home, although not this low. Echo did show some mild diastolic dysfunction. He was advised to follow-up with a crop setting out machine operator in the outpatient setting as well. He may need an event monitor. ALLERGIES Allergies Allergy/AdvReac Type Severity Reaction Status Date / Time No Known Drug Allergies Allergy Verified 08/23/24 20:01 MEDICATIONS Ambulatory Orders Medication Instructions Recorded Confirmed No Known Home Medications 08/23/24 08/23/24 LABS 08/27/24 04:03 08/27/24 04:03 SEPSIS Current Stage of Sepsis: Resolved (resolved with empiric IV antibiotic treatment ) Possible source of Sepsis: Meningitis Sepsis Criteria: Recorded Respiratory Rate greater than 20, WBC count greater than 12,000 or less than 4000 and Metabolic: lactate > 2 mmol/L Discharge Plan Discharge Condition: Stable Prescriptions: No Action No Known Home Medications Print Language: Serbian Stand Alone Forms: PCP List Follow-up Care: NASRIN RAINES ARNP [Primary Care Provider] -"
--- NOTE | 2024-08-27 12:27 | ANESTHESIA PROCEDURE NOTE ---
Anesth Central Line Template Central Line Procedure Date: 08/27/24 Central Line Preparation: Consent Obtained Central line location: Right Basilic Central line type: PICC Single Lumen (4 Swazi size) Central line catheter tip site resides: Superior vena cava (SVC) Central line aftercare: Secured (statlock), No complications, Bundle checklist complete and Pt tolerated well
[2024-08-28 06:15] LABS: HCT - HEMATOCRIT 37.5 % (42.0-52.0); HGB - HEMOGLOBIN 12.6 g/dL (14.0-18.0); MEAN CORPUSCULAR HEMOGLOBIN 29.8 pg (27.0-31.0); MEAN CORPUSCULAR HGB CONC 33.6 g/dL (32.0-36.0); MEAN CORPUSCULAR VOLUME 88.7 fL (80.0-94.0); MEAN PLATELET VOLUME 11.6 fL (7.4-11.4); RED BLOOD COUNT 4.23 10^6/uL (4.70-6.10); RED CELL DISTRIBUTION WIDTH 12.7 % (12.0-15.0); WHITE BLOOD COUNT 8.8 x10^3/uL (4.8-10.8)
[2024-08-28 06:31] LABS: CREATININE 0.7 mg/dL (0.6-1.3); POTASSIUM 3.4 mmol/L (3.5-4.5)
[2024-08-28 11:04] VITALS: BP 97/68; TEMP 98.4; O2SAT 98
--- NOTE | 2024-08-28 11:06 | Discharge Summary ---
Discharge Summary Admit Date: 08/28/24 Discharge Date: 08/28/24 Discharging Provider: Ananda Code Status: Attempt Resuscitation Discharge Facility Name: home DIAGNOSES Admission Diagnoses: Bacterial meningitis Community-acquired pneumonia Discharge Diagnoses with Status of Each Condition: Bacterial meningitis: 6/14 days Rocephin. Continue Rocephin infusion at home. [facility] pneumonia resolved HPI History of Present Illness: 54M c no significan medical hx p/w sudden confusion and agitation. Patient reportedly was baseline self yesterday. This morning patient awoke and had a headache. He went back to be after taking acetaminophen. He awoke later during the day and had n/v. Patient went back to bed again. He was seen altered and nonverbal and not following command in the afternoon by . mentions no recent trauma or travel or new medications. No prior hx of similar event. Patient has no seizure hx. He did have a left acoustic neuroma removed in the past. Daughter had a transient GI infection that resolved. He was brought into the ED as code stroke. CT brain and CTA head were negative for acute findings. Patient was given sedation for LP. He is currently somnolent. HOSPITAL COURSE Hospital Course: Blood culture and LP were positive for Streptococcus A bacteria. Patient was started on dexamethasone and Rocephin. Patient" rocephin treatment will continued at home for a total of 14 days. Patient was also was treated for community acquired pneumonia which presumably was the source of the strep A meningitis. Community-acquired pneumonia resolved. Patient is discharged home with rocephin infusion in stable condition. ALLERGIES Allergies Allergy/AdvReac Type Severity Reaction Status Date / Time No Known Drug Allergies Allergy Verified 08/23/24 20:01 MEDICATIONS Ambulatory Orders Medication Instructions Recorded Confirmed No Known Home Medications 08/23/24 08/23/24 PHYSICAL EXAM AT DISCHARGE General Appearance: positive No acute distress and Alert Eyes Bilateral: positive Normal inspection and PERRL ENT: positive ENT inspection nml and Pharynx nml Neck: positive Nml inspection and Thyroid nml Respiratory: positive Chest non-tender and No respiratory distress Cardiovascular: positive Regular rate & rhythm and No murmur Abdomen: positive Non-tender and No organomegaly Back: positive Nml inspection Skin: positive Color nml and No rash Extremities: positive Non-tender and Full ROM Neurologic/Psychiatric: positive Oriented x3 and CN's nml (2-12) LABS 08/28/24 06:00 08/28/24 06:00 DIAGNOSTIC IMAGING Diagnostic Imaging Results: Final report reviewed SEPSIS Current Stage of Sepsis: Resolved (resolved with empiric IV antibiotic treatment ) Possible source of Sepsis: Meningitis Sepsis Criteria: Recorded Respiratory Rate greater than 20, WBC count greater than 12,000 or less than 4000 and Metabolic: lactate > 2 mmol/L FOLLOW UP Follow Up: Primary care physician TIME SPENT Time Spent in Discharge (Minutes): 32 Discharge Plan Discharge Patient Disposition: Home, Self Care Condition: Stable Medically Cleared Date:: 08/28/24 Prescriptions: No Action No Known Home Medications Activity Restrictions: No Restrictions Diet: Regular Health Concerns: You are admitted for bacterial meningitis. Lumbar puncture was positive for Streptococcus A bacteria. He was started on dexamethasone and Rocephin IV. You will continue Rocephin IV for a total of 14 days at home. Blood cultures were Positive for Streptococcus A bacteria, repeat blood cultures indicated resolution of bacteremia. Echocardiogram did not indicate any vegetation on your heart valves. You are also treated for community-acquired pneumonia. Care Plan Goals: Transfusion home health for resolution of meningitis Plan of Treatment: Continue Rocephin 6/ at home. Print Language: Polish Patient Instructions: Meningitis Bacterial Stand Alone Forms: PCP List Follow-up Care: NASRIN RAINES ARNP [Primary Care Provider] -
== END 2024-08-28 11:46 | disposition home or self-care (01) | DRG 871 ==
LOC: ED 19:50 → ICU 23:00
PROVIDERS: ADMIT Internal Medicine; ATTEND Internal Medicine
DX: G93.41 Metabolic encephalopathy; R00.1 Bradycardia, unspecified; E87.6 Hypokalemia; E86.0 Dehydration; D64.9 Anemia, unspecified; A40.0 Sepsis due to streptococcus, group A; G00.2 Streptococcal meningitis; B95.0 Streptococcus, group A, as the cause of diseases classified elsewhere; J15.4 Pneumonia due to other streptococci; E87.0 Hyperosmolality and hypernatremia; E83.42 Hypomagnesemia